=== PATIENT | male | born 1955 | race Caucasian/White ===

== ENCOUNTER 2016-10-07 18:44 | Emergency (ER) | payer MEDICARE ==
[~2016-10-07 18:44] MED LIST: ACETAMINOPHEN-H1 TA2 PO; ANAPROX DS550 MG PO; BACTRIM DS 8001 TA1 PO; BACTROBAN CREAM15 GM T; CEPHALEXIN500 M1 PO; CLEOCIN HCL300 MG PO; CLEOCIN150 MG PO; CYCLOBENZAPRINE10 MG PO; EPIPEN 2-PAK1 MG/ML IJ; FLEXERIL10 MG PO; FLEXERIL5 MG PO; HYDROCODONE BIT1 T11 PO; KEFLEX500 M1 PO; LIDEX 0.05% CRE15 GM T; MEDROL DOSEPAK4 MG PO; MINOCYCLINE100 MG PO; MOTRIN800 MG PO; NAPROSYN500 MG PO; NO DAILY MEDS; NORCO 5-325 TA1 EACH PO; ULTRAM50 MG PO; VICODIN 5/500 505 MG PO; VICODIN 500 MG-1 TAB PO; VICODIN1 TAB PO; ZOFRAN ODT4 MG SL; ZOFRAN4 MG PO
[2016-10-07 18:49] VITALS: BP 150/86
[2016-10-07] MEDS ORDERED: CEPHALEXIN500 M1 PO (20:09)
== END 2016-10-07 20:16 | disposition home or self-care (01) ==
LOC: ED 18:44
DX: S80.12XA Contusion of left lower leg, initial encounter (principal); S80.812A Abrasion, left lower leg, initial encounter; F17.200 Nicotine dependence, unspecified, uncomplicated; Z98.890 Other specified postprocedural states; Z91.030 Bee allergy status; Z88.5 Allergy status to narcotic agent; W22.8XXA Striking against or struck by other objects, initial encounter; Y93.89 Activity, other specified; Y92.89 Other specified places as the place of occurrence of the external cause; Y99.9 Unspecified external cause status

== ENCOUNTER 2016-12-19 18:53 | Emergency (ER) | payer MEDICARE ==
[~2016-12-19] VITALS: Ht 175.2 cm; Wt 77.1 kg
[2016-12-19 19:02] VITALS: BP 139/75
[2016-12-19] MEDS ORDERED: PERCOCET 325 MG1 TA2 PO (21:11)
== END 2016-12-19 21:35 | disposition home or self-care (01) ==
LOC: ED 18:53
DX: M54.2 Cervicalgia (principal); R20.0 Anesthesia of skin; R53.1 Weakness; F17.200 Nicotine dependence, unspecified, uncomplicated; Z88.6 Allergy status to analgesic agent; Z91.030 Bee allergy status

== ENCOUNTER → 2016-12-26 | Outpatient (CLI) | payer MEDICARE ==
[~2016-12-26] MED LIST changes: +PERCOCET 325 MG1 TA2 PO
== END | disposition home or self-care (01) ==
LOC: ORTHO 03:05
DX: L72.9 Follicular cyst of the skin and subcutaneous tissue, unspecified (principal); M25.862 Other specified joint disorders, left knee

== ENCOUNTER → 2017-01-20 | Outpatient (CLI) | payer MEDICARE | LOC: RAD 12:29 | DX: M79.9 Soft tissue disorder, unspecified (principal) ==

== ENCOUNTER 2017-03-09 16:11 | Emergency (ER) | payer MEDICARE ==
[~2017-03-09] VITALS: Ht 177.8 cm; Wt 78.5 kg
[2017-03-09 16:46] VITALS: BP 127/78
[2017-03-09] MEDS ORDERED: CYCLOBENZAPRINE10 MG PO (18:19)
[2017-03-09] MEDS ORDERED: MEDROL DOSEPAK4 MG PO (18:19)
== END 2017-03-09 18:35 | disposition home or self-care (01) ==
LOC: ED 16:11
DX: M54.5 Low back pain (principal); M79.605 Pain in left leg; F17.200 Nicotine dependence, unspecified, uncomplicated; K21.9 Gastro-esophageal reflux disease without esophagitis; Z98.890 Other specified postprocedural states; Z91.030 Bee allergy status; Z88.5 Allergy status to narcotic agent

== ENCOUNTER 2017-11-18 15:03 | Inpatient (IN) | payer MEDICARE ==
[~2017-11-18] VITALS: Ht 175.3 cm; Wt 73.6 kg
[2017-11-18 15:06] VITALS: BP 132/82
[2017-11-18 15:55] LABS: BASO % 0.5 % (0.0-1.0); EOS # 0.2 10*3/uL (0.0-0.4); EOS % 2.3 % (1.0-4.0); HEMATOCRIT 44.1 % (42.0-52.0); HEMOGLOBIN 14.5 g/dl (14.0-18.0); LYMPH # 1.5 10*3/uL (1.3-4.4); LYMPH % 23.9 % (27.0-41.0); MEAN CELL VOLUME 90.2 fl (80.0-94.0); MEAN CORPUSCULAR HGB 29.7 pg (27.0-31.0); MEAN CORPUSCULAR HGB CONC 32.9 g/dl (33.0-37.0); MEAN PLATELET VOLUME 10.3 fl (9.6-12.3); MONO # 0.6 10*3/uL (0.1-1.0); MONO % 9.8 % (3.0-9.0); NEUT # 4.1 10*3/uL (2.3-7.9); NEUT % 63.2 % (47.0-73.0); PLATELET COUNT AUTOMATED 269 10*3/uL (130-400); RED BLOOD COUNT 4.89 10*6/uL (4.50-5.90); RED CELL DISTRI WIDTH 14.4 % (0-14.5); WHITE BLOOD COUNT 6.5 10*3/uL (4.8-10.8)
[2017-11-18 16:07] LABS: ACT PARTIAL THROMBO TIME 22.7 SECONDS (20.8-31.5); INTERNATIONAL NORM RATIO 0.9 (2.0-3.5)
[2017-11-18 16:11] LABS: ALBUMIN 3.9 gm/dl (3.1-4.5); ALKALINE PHOSPHATASE 115 U/L (45-117); BUN 12 mg/dl (7-24); CHLORIDE 105 mmol/L (98-107); CREATININE 0.84 mg/dL (0.70-1.30); POTASSIUM 4.2 mmol/L (3.5-5.1); SGOT/AST 21 IU/L (3-35); SGPT/ALT 28 U/L (12-78); SODIUM 140 mmol/L (136-145); TROPONIN I 0.041 ng/ml (<0.045)
[2017-11-18 16:59] VITALS: BP 138/88
[2017-11-18 17:08] LABS: BILIRUBIN NEGATIVE (NEGATIVE); BLOOD NEGATIVE (NEGATIVE); CLARITY SL CLOUDY (CLEAR); COLOR YELLOW (YELLOW); GLUCOSE NEGATIVE (NEGATIVE); KETONE NEGATIVE (NEGATIVE); LEUKO ESTERASE NEGATIVE (NEGATIVE); NITRITE NEGATIVE (NEGATIVE)
[2017-11-18 17:30] LABS: WBC 0-2 wbc/hpf (0-5)
[2017-11-18 17:39] VITALS: BP 146/79
[2017-11-18 18:00] VITALS: BP 146/91
[2017-11-18 20:00] VITALS: BP 122/77
[2017-11-19] VITALS: BP 122/52
[2017-11-19 06:32] LABS: BASO % 0.6 % (0.0-1.0); EOS # 0.2 10*3/uL (0.0-0.4); EOS % 4.5 % (1.0-4.0); HEMATOCRIT 42.1 % (42.0-52.0); HEMOGLOBIN 13.6 g/dl (14.0-18.0); LYMPH # 1.7 10*3/uL (1.3-4.4); LYMPH % 34.2 % (27.0-41.0); MEAN CELL VOLUME 90.3 fl (80.0-94.0); MEAN CORPUSCULAR HGB 29.2 pg (27.0-31.0); MEAN CORPUSCULAR HGB CONC 32.3 g/dl (33.0-37.0); MEAN PLATELET VOLUME 10.4 fl (9.6-12.3); MONO # 0.5 10*3/uL (0.1-1.0); MONO % 11.1 % (3.0-9.0); NEUT # 2.4 10*3/uL (2.3-7.9); NEUT % 49.2 % (47.0-73.0); PLATELET COUNT AUTOMATED 251 10*3/uL (130-400); RED BLOOD COUNT 4.66 10*6/uL (4.50-5.90); RED CELL DISTRI WIDTH 14.5 % (0-14.5); WHITE BLOOD COUNT 4.9 10*3/uL (4.8-10.8)
[2017-11-19 06:49] LABS: ALBUMIN 3.4 gm/dl (3.1-4.5); BUN 12 mg/dl (7-24); CHLORIDE 109 mmol/L (98-107); CREATININE 0.77 mg/dL (0.70-1.30); PHOSPHOROUS 3.1 mg/dL (2.5-4.9); SGOT/AST 17 IU/L (3-35); SGPT/ALT 26 U/L (12-78); SODIUM 142 mmol/L (136-145); TOTAL PROTEIN 6.1 gm/dL (6.4-8.2); TRIGLYCERIDES 39 mg/dl (<150); VLDL CHOLESTEROL 8 mg/dL (6-40)
[2017-11-19 06:55] LABS: ALKALINE PHOSPHATASE 100 U/L (45-117); CHOLESTEROL 164 mg/dL (<200); HDL CHOLESTEROL 102 mg/dl (40-60); LDL CHOLESTEROL 54 mg/dL (9-159); THYROID STIM HORMONE (HS) 0.974 uIU/ml (0.358-4.75)
[2017-11-19 07:48] LABS: VITAMIN D, 25-HYDROXY 61.1 ng/mL (30-100)
[2017-11-19 08:00] VITALS: BP 150/78
== END 2017-11-19 11:15 | disposition home or self-care (01) | DRG 311 ==
LOC: ED 15:03 → 4E 17:07 → EDHOLD 17:07 → 4E 17:47
PROVIDERS: Internal Medicine Hospice and Palliative Medicine; Physician Assistant
DX: I20.8 Other forms of angina pectoris (principal); K50.90 Crohn's disease, unspecified, without complications; F17.200 Nicotine dependence, unspecified, uncomplicated; I10 Essential (primary) hypertension; E78.5 Hyperlipidemia, unspecified; K21.9 Gastro-esophageal reflux disease without esophagitis; E66.3 Overweight; F10.10 Alcohol abuse, uncomplicated; Z96.652 Presence of left artificial knee joint; D72.810 Lymphocytopenia; Z71.6 Tobacco abuse counseling; Z68.26 Body mass index [BMI] 26.0-26.9, adult; Z98.890 Other specified postprocedural states; Z88.5 Allergy status to narcotic agent; Z91.030 Bee allergy status; Z90.49 Acquired absence of other specified parts of digestive tract; Z82.49 Family history of ischemic heart disease and other diseases of the circulatory system

== ENCOUNTER 2018-01-03 12:31 | Emergency (ER) | payer MEDICARE ==
[~2018-01-03] VITALS: Wt 79.4 kg
[2018-01-03 13:33] VITALS: BP 164/78
[2018-02-04] MEDS ORDERED: MEDROL DOSEPAK4 MG PO (12:12)
[2018-02-04] MEDS ORDERED: WAL-SOM50 MG PO (12:12)
== END 2018-01-03 14:34 | disposition home or self-care (01) ==
LOC: ED 12:31
DX: S01.311A Laceration without foreign body of right ear, initial encounter (principal); S50.01XA Contusion of right elbow, initial encounter; F17.200 Nicotine dependence, unspecified, uncomplicated; E66.3 Overweight; K21.9 Gastro-esophageal reflux disease without esophagitis; Z91.030 Bee allergy status; Z98.890 Other specified postprocedural states; Z68.29 Body mass index [BMI] 29.0-29.9, adult; Z88.5 Allergy status to narcotic agent; W01.198A Fall on same level from slipping, tripping and stumbling with subsequent striking against other object, initial encounter; Y93.89 Activity, other specified; Y92.098 Other place in other non-institutional residence as the place of occurrence of the external cause; Y99.9 Unspecified external cause status

== ENCOUNTER 2018-04-10 11:34 | Inpatient (IN) | payer MEDICARE ==
[~2018-04-10] VITALS: Ht 172.7 cm; Wt 77.1 kg
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
--- NOTE | ~2018-04-10 | EKG ---
[place], [place] ELECTROCARDIOGRAM REPORT NAME: ZULEIMA CRESPO UNIT #: [id number] ROOM: 402 DOCTOR: ECTOR DRAFT REPORT BIRTHDATE: [birth year] [facility] Test Date: 2018-04-10 Test Time: 18:14:46 Pat Name: ZULEIMA CRESPO Department: Room: 402 Gender: M Clerical Secretary: EKG.MN : 1955 Requested By: JANAE TOLBERT Order Number: [id number] Reading MD: Santino Ashraf MD Measurements Intervals [place] Rate: 71 P: 65 MD: 162 QRS: 54 QRSD: 103 T: 48 QT: 403 QTc: 438 Interpretive Statements Sinus rhythm Left atrial enlargement Compared to ECG 04/10/2018 15:26:38 No significant changes Electronically Signed On 04-10-2018 18:35:39 PDT by Santino Ashraf MD CM:EKGRPT:ELECTROCARDIOGRAM REPORT 1835 JANAE FARIA DRAFT REPORT JANAE TOLBERT DO
--- NOTE | ~2018-04-10 | EKG ---
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
--- NOTE | ~2018-04-10 | EKG ---
[place], [place] ELECTROCARDIOGRAM REPORT NAME: ZULEIMA CRESPO UNIT #: [id number] ROOM: 402 DOCTOR: ECTOR DRAFT REPORT BIRTHDATE: [birth year] [facility] Test Date: 2018-04-10 Test Time: 11:34:45 Pat Name: ZULEIMA CRESPO Department: Room: 402 Gender: M Call Center Coordinator: 15 : 1955 Requested By: JANAE TOLBERT Order Number: [id number] Reading MD: Santino Ashraf MD Measurements Intervals [place] Rate: 70 P: -2 NM: 151 QRS: 63 QRSD: 103 T: 60 QT: 417 QTc: 450 Interpretive Statements Sinus rhythm Minimal ST elevation, inferior leads Electronically Signed On 04-10-2018 13:59:14 PDT by Santino Ashraf MD CM:EKGRPT:ELECTROCARDIOGRAM REPORT 1134 1359 JANAE FARIA DRAFT REPORT JANAE TOLBERT DO
[~2018-04-10 11:34] MED LIST changes: +WAL-SOM50 MG PO
[2018-04-10 11:35] VITALS: BP 134/71
[2018-04-10 11:47] LABS: BASO # 0.1 10*3/uL (0.0-0.1); BASO % 0.5 % (0.0-1.0); EOS # 0.1 10*3/uL (0.0-0.4); EOS % 1.2 % (1.0-4.0); HEMATOCRIT 45.2 % (42.0-52.0); HEMOGLOBIN 15.5 g/dl (14.0-18.0); LYMPH % 21.6 % (27.0-41.0); MEAN CELL VOLUME 87.1 fl (80.0-94.0); MEAN CORPUSCULAR HGB 29.9 pg (27.0-31.0); MEAN CORPUSCULAR HGB CONC 34.3 g/dl (33.0-37.0); MEAN PLATELET VOLUME 10.1 fl (9.6-12.3); MONO # 0.5 10*3/uL (0.1-1.0); MONO % 5.5 % (3.0-9.0); NEUT # 6.5 10*3/uL (2.3-7.9); NEUT % 70.8 % (47.0-73.0); PLATELET COUNT AUTOMATED 295 10*3/uL (130-400); RED BLOOD COUNT 5.19 10*6/uL (4.50-5.90); RED CELL DISTRI WIDTH 13.8 % (0-14.5); WHITE BLOOD COUNT 9.2 10*3/uL (4.8-10.8)
[2018-04-10 11:56] LABS: ACT PARTIAL THROMBO TIME 19.5 SECONDS (20.8-31.5); INTERNATIONAL NORM RATIO 0.9 (2.0-3.5)
[2018-04-10 12:04] LABS: ALBUMIN 4.2 gm/dl (3.1-4.5); ALKALINE PHOSPHATASE 127 U/L (45-117); BUN 10 mg/dl (7-24); CHLORIDE 107 mmol/L (98-107); CREATININE 0.86 mg/dL (0.70-1.30); POTASSIUM 3.6 mmol/L (3.5-5.1); SGOT/AST 16 IU/L (3-35); SGPT/ALT 28 U/L (12-78); SODIUM 141 mmol/L (136-145); TOTAL PROTEIN 7.7 gm/dL (6.4-8.2); TROPONIN I 0.041 ng/ml (<0.045)
[2018-04-10 13:35] VITALS: BP 127/75
[2018-04-10 14:12] VITALS: BP 139/84
[2018-04-10 14:27] VITALS: BP 138/84
[2018-04-10 16:00] VITALS: BP 139/77
[2018-04-10 20:00] VITALS: BP 123/60
[2018-04-11] VITALS: BP 126/58
[2018-04-11 06:45] LABS: BASO % 0.1 % (0.0-1.0); EOS % 0.1 % (1.0-4.0); HEMATOCRIT 42.7 % (42.0-52.0); HEMOGLOBIN 14.1 g/dl (14.0-18.0); LYMPH # 1.7 10*3/uL (1.3-4.4); LYMPH % 12.2 % (27.0-41.0); MEAN CELL VOLUME 89.3 fl (80.0-94.0); MEAN CORPUSCULAR HGB 29.5 pg (27.0-31.0); MEAN PLATELET VOLUME 10.3 fl (9.6-12.3); MONO # 1.2 10*3/uL (0.1-1.0); MONO % 8.2 % (3.0-9.0); NEUT # 11.1 10*3/uL (2.3-7.9); NEUT % 78.8 % (47.0-73.0); PLATELET COUNT AUTOMATED 242 10*3/uL (130-400); RED BLOOD COUNT 4.78 10*6/uL (4.50-5.90); RED CELL DISTRI WIDTH 13.8 % (0-14.5)
[2018-04-11 07:16] LABS: ALBUMIN 3.6 gm/dl (3.1-4.5); ALKALINE PHOSPHATASE 121 U/L (45-117); BUN 15 mg/dl (7-24); CHLORIDE 105 mmol/L (98-107); CHOLESTEROL 172 mg/dL (<200); FREE T4 0.89 ng/dl (0.76-1.46); HDL CHOLESTEROL 93 mg/dl (40-60); PHOSPHOROUS 3.4 mg/dL (2.5-4.9); POTASSIUM 3.9 mmol/L (3.5-5.1); SGOT/AST 18 IU/L (3-35); SGPT/ALT 24 U/L (12-78); SODIUM 138 mmol/L (136-145)
[2018-04-11 07:22] LABS: CREATININE 0.75 mg/dL (0.70-1.30); LDL CHOLESTEROL 69 mg/dL (9-159); THYROID STIM HORMONE (HS) 0.284 uIU/ml (0.358-4.75); TOTAL PROTEIN 6.8 gm/dL (6.4-8.2); TRIGLYCERIDES 50 mg/dl (<150); VLDL CHOLESTEROL 10 mg/dL (6-40)
[2018-04-11 07:54] LABS: VITAMIN D, 25-HYDROXY 64.2 ng/mL (30-100)
[2018-04-11 08:08] VITALS: BP 142/56
[2018-04-11 12:00] VITALS: BP 129/77
== END 2018-04-11 13:29 | disposition home or self-care (01) | DRG 206 ==
LOC: ED 11:34 → EDHOLD 13:31 → 4E 14:19
PROVIDERS: Emergency Medicine; Registered Nurse
DX: M94.0 Chondrocostal junction syndrome [Tietze] (principal); K50.90 Crohn's disease, unspecified, without complications; K21.9 Gastro-esophageal reflux disease without esophagitis; R07.89 Other chest pain; R74.8 Abnormal levels of other serum enzymes; F17.210 Nicotine dependence, cigarettes, uncomplicated; F10.10 Alcohol abuse, uncomplicated; F12.90 Cannabis use, unspecified, uncomplicated; M25.511 Pain in right shoulder; Z71.6 Tobacco abuse counseling; Z82.49 Family history of ischemic heart disease and other diseases of the circulatory system; Z88.5 Allergy status to narcotic agent; Z91.030 Bee allergy status; Z91.81 History of falling; I25.2 Old myocardial infarction

== ENCOUNTER → 2018-04-23 | Outpatient (CLI) | payer MEDICARE | END | disposition home or self-care (01) | LOC: US 13:51 | DX: I70.213 Atherosclerosis of native arteries of extremities with intermittent claudication, bilateral legs (principal); I70.298 Other atherosclerosis of native arteries of extremities, other extremity; R09.89 Other specified symptoms and signs involving the circulatory and respiratory systems; I25.2 Old myocardial infarction; Z87.891 Personal history of nicotine dependence ==

== ENCOUNTER 2019-02-22 17:34 | Emergency (ER) | payer MEDICARE, MEDICAID ==
[~2019-02-22] VITALS: Ht 177.8 cm; Wt 72.6 kg
[2019-02-22 17:37] VITALS: BP 122/68
[2019-02-22] MEDS ORDERED: LIDODERM1 EACH T (19:31)
[2019-02-22] MEDS ORDERED: CYCLOBENZAPRINE10 MG PO (19:31)
== END 2019-02-22 19:32 | disposition home or self-care (01) ==
LOC: ED 17:34
DX: M54.2 Cervicalgia (principal); M79.601 Pain in right arm; F17.200 Nicotine dependence, unspecified, uncomplicated; Z88.6 Allergy status to analgesic agent; Z91.030 Bee allergy status; W01.0XXA Fall on same level from slipping, tripping and stumbling without subsequent striking against object, initial encounter; Y93.89 Activity, other specified; Y92.89 Other specified places as the place of occurrence of the external cause; Y99.8 Other external cause status

== ENCOUNTER 2019-03-06 19:45 | Inpatient (IN) | payer MEDICARE, MEDICAID ==
[~2019-03-06] VITALS: Ht 177.8 cm; Wt 73.7 kg
--- NOTE | ~2019-03-06 | EKG ---
[place], [place] ELECTROCARDIOGRAM REPORT NAME: ZULEIMA CRESPO UNIT #: [id number] ROOM: 415 DOCTOR: ECTOR DRAFT REPORT BIRTHDATE: [birth year] [facility] Test Date: 2019-03-06 Test Time: 19:51:03 Pat Name: ZULEIMA CRESPO Department: Room: 415 Gender: M Assorter: : 1955 Requested By: ALEJANDRO SMITH Order Number: [id number] Reading MD: Amarjit Kirby MD Measurements Intervals [place] Rate: 61 P: 69 FL: 155 QRS: 68 QRSD: 101 T: 62 QT: 455 QTc: 459 Interpretive Statements Sinus rhythm Probable left atrial enlargement Compared to ECG 10/31/2018 19:19:46 Atrial premature complex(es) no longer present Electronically Signed On 03-07-2019 14:37:21 PDT by Amarjit Kirby MD CM:EKGRPT:ELECTROCARDIOGRAM REPORT 50 1437 ALEJANDRO FARIA DRAFT REPORT ALEJANDRO SMITH DO
--- NOTE | ~2019-03-06 | EKG ---
[place], [place] ELECTROCARDIOGRAM REPORT NAME: ZULEIMA CRESPO UNIT #: [id number] ROOM: 415 DOCTOR: ECTOR DRAFT REPORT BIRTHDATE: [birth year] [facility] Test Date: 2019-03-06 Test Time: 22:10:50 Pat Name: ZULEIMA CRESPO Department: Room: 415 Gender: M Leather Whitener: : 1955 Requested By: ALEJANDRO SMITH Order Number: [id number] Reading MD: Amarjit Kirby MD Measurements Intervals [place] Rate: 67 P: 62 SD: 161 QRS: 46 QRSD: 98 T: 50 QT: 427 QTc: 451 Interpretive Statements Sinus rhythm Minimal ST elevation, anterior leads Compared to ECG 10/31/2018 19:19:46 ST (T wave) deviation now present Atrial premature complex(es) no longer present Electronically Signed On 03-07-2019 14:37:36 PDT by Amarjit Kirby MD CM:EKGRPT:ELECTROCARDIOGRAM REPORT 1437 ALEJANDRO FARIA DRAFT REPORT ALEJANDRO SMITH DO
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
[~2019-03-06 19:45] MED LIST changes: +LIDODERM1 EACH T
[2019-03-06 19:53] VITALS: BP 134/80
[2019-03-06 20:10] VITALS: BP 138/81
[2019-03-06 20:14] LABS: BASO % 0.3 % (0.0-1.0); EOS % 0.1 % (1.0-4.0); HEMATOCRIT 47.6 % (42.0-52.0); HEMOGLOBIN 15.9 g/dl (14.0-18.0); LYMPH # 1.4 10*3/uL (1.3-4.4); MEAN CELL VOLUME 88.1 fl (80.0-94.0); MEAN CORPUSCULAR HGB 29.4 pg (27.0-31.0); MEAN CORPUSCULAR HGB CONC 33.4 g/dl (33.0-37.0); MONO # 0.6 10*3/uL (0.1-1.0); MONO % 7.1 % (3.0-9.0); NEUT # 5.9 10*3/uL (2.3-7.9); PLATELET COUNT AUTOMATED 265 10*3/uL (130-400); RED CELL DISTRI WIDTH 13.8 % (0-14.5)
[2019-03-06 20:25] LABS: ACT PARTIAL THROMBO TIME 22.4 SECONDS (20.0-32.1); INTERNATIONAL NORM RATIO 0.9 (2.0-3.5)
--- NOTE | 2019-03-06 20:25 | NUR ---
PATIENT STATES HE IS FEELING BETTER AND WANTED TO TAKE OFF 2LITERS NC OXYGEN AT THIS TIME. 97% ON RA. RN WILL CONT TO MONITOR
[2019-03-06 20:26] VITALS: BP 135/73
--- NOTE | 2019-03-06 20:29 | NUR ---
PATIENT OFF THE FLOOR AT CT.
[2019-03-06 20:33] LABS: ALBUMIN 4.2 gm/dl (3.1-4.5); ALKALINE PHOSPHATASE 155 U/L (45-117); BUN 11 mg/dl (7-24); CHLORIDE 102 mmol/L (98-107); CREATININE 0.91 mg/dL (0.70-1.30); POTASSIUM 3.7 mmol/L (3.5-5.1); SGOT/AST 24 IU/L (3-35); SGPT/ALT 36 U/L (12-78); SODIUM 138 mmol/L (136-145); TOTAL PROTEIN 7.6 gm/dL (6.4-8.2)
[2019-03-06 20:37] LABS: TROPONIN I 0.047 ng/ml (<0.045)
--- NOTE | 2019-03-06 20:37 | NUR ---
CRITICAL LAB TROP 0.047. DR SMITH NOTIFIED OF THIS FINDING.
--- NOTE | 2019-03-06 20:58 | NUR ---
CRITICAL LAB LACTIC ACID 2.3. DR SMITH NOTIFIED OF THIS FINDING.
[2019-03-06 21:00] VITALS: BP 135/71
[2019-03-06 21:36] VITALS: BP 132/79
[2019-03-06 21:37] LABS: BILIRUBIN NEGATIVE (NEGATIVE); BLOOD NEGATIVE (NEGATIVE); CLARITY CLEAR (CLEAR); COLOR YELLOW (YELLOW); GLUCOSE NEGATIVE (NEGATIVE); KETONE 2+ (NEGATIVE); LEUKO ESTERASE NEGATIVE (NEGATIVE); NITRITE NEGATIVE (NEGATIVE)
[2019-03-06 21:43] LABS: BACTERIA TRACE; RBC 0-2 rbc/hpf (0-2)
[2019-03-06 21:46] LABS: URINE AMPHETAMINES < 1000 (1000ng/ml); URINE BARBITURATES < 200 (200ng/ml); URINE BENZODIAZEPINES < 200 (200ng/ml); URINE CANNABINOIDS (THC) > 50 (50ng/ml); URINE COCAINE < 300 (300ng/ml); URINE METHADONE < 300 (300ng/ml); URINE OPIATES < 300 (300ng/ml)
[2019-03-06 21:47] LABS: URINE PHENCYCLIDINE < 25 (25ng/ml)
[2019-03-06 22:18] VITALS: BP 121/88
--- NOTE | 2019-03-06 22:55 | NUR ---
CRITICAL RESULT RECEIVED FROM LAB AT THIS TIME. CAMILA VEGA AND DR SMITH NOTIFIED.
[2019-03-07 00:05] VITALS: BP 136/76
--- NOTE | 2019-03-07 00:05 | NUR ---
A 63, admitted to 4E, under the services of DOV Castro DO with a diagnosis of LIGHTHEADEDNESS, DEHYDRATION, COPD. Chief complaint is NAUSEA/VOMITING, LIGHTHEADEDNESS/DIZZINESS. Patient arrived via stretcher from ER. Monitor applied. Initial assessment completed. Vital signs taken and recorded. DOV CASTRO DO notified of admission to the unit. Orders received. See assessment for past medical history, medications and allergies. Patient and/or family oriented to unit. [facility] visitation policy reviewed. Clothing/patient valuable form completed. SAM VALDEZ
[2019-03-07] MEDS ORDERED: OMEPRAZOLE40 MG PO (00:17)
--- NOTE | 2019-03-07 00:18 | NUR ---
HOME MED REC UP TO DATE PER PT RECALL.
--- NOTE | 2019-03-07 02:12 | NUR ---
NOTIFIED OF CRITICAL TROPONIN 0.049, DOWN FROM 0.054. NO NEW ORDERS RECEIVED.
[2019-03-07 06:06] LABS: BASO % 0.2 % (0.0-1.0); HEMATOCRIT 45.6 % (42.0-52.0); HEMOGLOBIN 15.1 g/dl (14.0-18.0); LYMPH # 0.5 10*3/uL (1.3-4.4); LYMPH % 9.3 % (27.0-41.0); MEAN CELL VOLUME 88.5 fl (80.0-94.0); MEAN CORPUSCULAR HGB 29.3 pg (27.0-31.0); MEAN CORPUSCULAR HGB CONC 33.1 g/dl (33.0-37.0); MEAN PLATELET VOLUME 10.7 fl (9.6-12.3); MONO # 0.2 10*3/uL (0.1-1.0); MONO % 2.8 % (3.0-9.0); NEUT % 87.2 % (47.0-73.0); PLATELET COUNT AUTOMATED 274 10*3/uL (130-400); RED BLOOD COUNT 5.15 10*6/uL (4.50-5.90); RED CELL DISTRI WIDTH 13.9 % (0-14.5); WHITE BLOOD COUNT 5.8 10*3/uL (4.8-10.8)
[2019-03-07 06:16] LABS: BUN 16 mg/dl (7-24); CHLORIDE 105 mmol/L (98-107); CREATININE 0.83 mg/dL (0.70-1.30); PHOSPHOROUS 2.2 mg/dL (2.5-4.9); POTASSIUM 4.1 mmol/L (3.5-5.1); SODIUM 141 mmol/L (136-145)
[2019-03-07 08:00] VITALS: BP 133/69
--- NOTE | 2019-03-07 08:20 | NUR ---
Awake and alert. States is hoping to go home today. Garrett Deluna TANKROOM TENDER in to rajesh;cris.
--- NOTE | 2019-03-07 09:00 | NUR ---
Residential Mental Health Worker in to talk to patient. Patient states lives at home with . There are few steps in the home. Physician: tito rothman Pharmacy: [facility] Home health services: none Patient's level of ADLs: INDEPENDENT Patient has working utilities: [employer]working DME: none Follow-up physician's appointment after d/c: will be made by hospitalist nurse director upon discharge Does patient want to access PORTAL?: no Discharge plan discussed with patient, he states he lives at home with , he is independent in adls and ambulation, he states he will be returning home when medically stable and denies any home needs. KENDRICK VALENCIA
--- NOTE | 2019-03-07 09:44 | NUR ---
Dr. Mcneill was notified of consult.
--- NOTE | 2019-03-07 12:22 | NUR ---
dR. Mcneill in [place] for discharge. Terra WHEEL GRINDER notified . Order for discharge recieved. Instruction given , Voiced understanding. IV dc'd and pt. discharged to home.
== END 2019-03-07 12:22 | disposition home or self-care (01) | DRG 392 ==
LOC: ED 19:45 → EDHOLD 22:12 → 4E 22:39
PROVIDERS: Emergency Medicine; Internal Medicine; ADMIT Internal Medicine
DX: K21.9 Gastro-esophageal reflux disease without esophagitis (principal); I24.8 Other forms of acute ischemic heart disease; K50.90 Crohn's disease, unspecified, without complications; J44.9 Chronic obstructive pulmonary disease, unspecified; E86.0 Dehydration; F12.90 Cannabis use, unspecified, uncomplicated; I25.10 Atherosclerotic heart disease of native coronary artery without angina pectoris; F17.210 Nicotine dependence, cigarettes, uncomplicated; E83.41 Hypermagnesemia; I25.2 Old myocardial infarction; Z91.81 History of falling; Z82.49 Family history of ischemic heart disease and other diseases of the circulatory system; Z88.5 Allergy status to narcotic agent; Z91.030 Bee allergy status; Z79.899 Other long term (current) drug therapy; Z71.6 Tobacco abuse counseling

== ENCOUNTER → 2019-05-09 | Outpatient (CLI) | payer MEDICARE, MEDICAID ==
[~2019-05-09] MED LIST changes: +OMEPRAZOLE40 MG PO
[2019-05-09 12:59] LABS: BASO % 0.3 % (0.0-1.0); EOS # 0.2 10*3/uL (0.0-0.4); EOS % 3.7 % (1.0-4.0); HEMATOCRIT 43.7 % (42.0-52.0); HEMOGLOBIN 14.4 g/dl (14.0-18.0); LYMPH % 33.4 % (27.0-41.0); MEAN CELL VOLUME 89.9 fl (80.0-94.0); MEAN CORPUSCULAR HGB 29.6 pg (27.0-31.0); MEAN PLATELET VOLUME 10.7 fl (9.6-12.3); MONO # 0.4 10*3/uL (0.1-1.0); MONO % 7.1 % (3.0-9.0); NEUT # 3.3 10*3/uL (2.3-7.9); NEUT % 55.3 % (47.0-73.0); PLATELET COUNT AUTOMATED 242 10*3/uL (130-400); RED BLOOD COUNT 4.86 10*6/uL (4.50-5.90); RED CELL DISTRI WIDTH 13.8 % (0-14.5); WHITE BLOOD COUNT 5.9 10*3/uL (4.8-10.8)
[2019-05-09 13:04] LABS: BILIRUBIN NEGATIVE (NEGATIVE); BLOOD NEGATIVE (NEGATIVE); CLARITY CLEAR (CLEAR); COLOR YELLOW (YELLOW); GLUCOSE NEGATIVE (NEGATIVE); KETONE NEGATIVE (NEGATIVE); LEUKO ESTERASE NEGATIVE (NEGATIVE); NITRITE NEGATIVE (NEGATIVE); UROBILINOGEN 0.2 E.U./dl (0.2-1.0)
[2019-05-09 13:20] LABS: BACTERIA TRACE; MUCOUS TRACE
[2019-05-09 13:34] LABS: ALBUMIN 3.8 gm/dl (3.1-4.5); BUN 14 mg/dl (7-24); CHLORIDE 109 mmol/L (98-107); CREATININE 0.78 mg/dL (0.70-1.30); POTASSIUM 3.8 mmol/L (3.5-5.1); SGOT/AST 24 IU/L (3-35); SGPT/ALT 33 U/L (12-78); SODIUM 140 mmol/L (136-145)
[2019-05-09 13:36] LABS: ALKALINE PHOSPHATASE 135 U/L (45-117); TOTAL PROTEIN 7.2 gm/dL (6.4-8.2)
[2019-05-10 09:11] LABS: PROSTATE SPECIFIC AG FREE 0.53 ng/mL; PROSTATE SPECIFIC AG, SERUM 2.7 ng/mL (0.0-4.0)
== END | disposition home or self-care (01) ==
LOC: LAB 12:31 → CT 14:00
PROVIDERS: Nurse Practitioner Family
DX: Z12.5 Encounter for screening for malignant neoplasm of prostate (principal); N39.0 Urinary tract infection, site not specified; R53.83 Other fatigue; R33.9 Retention of urine, unspecified; R30.0 Dysuria; I70.0 Atherosclerosis of aorta

== ENCOUNTER 2019-06-09 20:37 | Emergency (ER) | payer MEDICARE, MEDICAID ==
[~2019-06-09] VITALS: Ht 175.2 cm; Wt 81.2 kg
[~2019-06-09 20:37] MED LIST changes: +DOXYCYCLINE100 M3 PO; +PREDNISONE50 MG PO; +ZITHROMAX250 MG PO
[2019-06-09] MEDS ORDERED: TAMSULOSIN HCL0.4 MG PO (20:39)
[2019-06-09] MEDS ORDERED: ASPIRIN ADULT L81 M2 PO (20:39)
[2019-06-09] MEDS ORDERED: FINASTERIDE5 M1 PO (20:39)
[2019-06-09 20:42] VITALS: BP 140/83
[2019-06-09 22:18] LABS: BASO % 0.5 % (0.0-1.0); EOS # 0.3 10*3/uL (0.0-0.4); EOS % 4.1 % (1.0-4.0); HEMATOCRIT 41.7 % (42.0-52.0); HEMOGLOBIN 13.8 g/dl (14.0-18.0); LYMPH % 25.5 % (27.0-41.0); MEAN CELL VOLUME 88.7 fl (80.0-94.0); MEAN CORPUSCULAR HGB 29.4 pg (27.0-31.0); MEAN CORPUSCULAR HGB CONC 33.1 g/dl (33.0-37.0); MEAN PLATELET VOLUME 10.1 fl (9.6-12.3); MONO # 0.8 10*3/uL (0.1-1.0); MONO % 10.1 % (3.0-9.0); NEUT # 4.7 10*3/uL (2.3-7.9); NEUT % 59.3 % (47.0-73.0); PLATELET COUNT AUTOMATED 272 10*3/uL (130-400); RED CELL DISTRI WIDTH 13.5 % (0-14.5)
[2019-06-09 22:38] LABS: ALBUMIN 3.5 gm/dl (3.1-4.5); ALKALINE PHOSPHATASE 178 U/L (45-117); BUN 15 mg/dl (7-24); CHLORIDE 108 mmol/L (98-107); CREATININE 0.79 mg/dL (0.70-1.30); POTASSIUM 3.4 mmol/L (3.5-5.1); SGOT/AST 11 IU/L (3-35); SGPT/ALT 28 U/L (12-78); SODIUM 139 mmol/L (136-145)
[2019-06-09 22:40] LABS: TROPONIN I < 0.015 ng/ml (<0.045)
[2019-06-10] MEDS ORDERED: AVPAK AZITHROM250 MG PO (03:24)
== END 2019-06-10 00:10 | disposition home or self-care (01) ==
LOC: ED 20:37
PROVIDERS: Nurse Practitioner
DX: J44.9 Chronic obstructive pulmonary disease, unspecified (principal); F17.210 Nicotine dependence, cigarettes, uncomplicated; Z91.030 Bee allergy status; Z88.5 Allergy status to narcotic agent; Z79.82 Long term (current) use of aspirin; Z79.899 Other long term (current) drug therapy

== ENCOUNTER 2019-08-31 10:40 | Emergency (ER) | payer OTHER, MEDICAID ==
[~2019-08-31] VITALS: Ht 177.8 cm; Wt 81.2 kg
[~2019-08-31 10:40] MED LIST changes: +ASPIRIN ADULT L81 M2 PO; +AVPAK AZITHROM250 MG PO; +FINASTERIDE5 M1 PO; +TAMSULOSIN HCL0.4 MG PO
[2019-08-31 10:53] VITALS: BP 153/88
== END 2019-08-31 13:14 | disposition home or self-care (01) ==
LOC: ED 10:40
DX: S60.222A Contusion of left hand, initial encounter (principal); Z88.5 Allergy status to narcotic agent; Z91.030 Bee allergy status; Z79.82 Long term (current) use of aspirin; Z79.899 Other long term (current) drug therapy; J44.9 Chronic obstructive pulmonary disease, unspecified; K21.9 Gastro-esophageal reflux disease without esophagitis; I25.2 Old myocardial infarction; F41.9 Anxiety disorder, unspecified; F17.200 Nicotine dependence, unspecified, uncomplicated; W23.0XXA Caught, crushed, jammed, or pinched between moving objects, initial encounter; Y93.89 Activity, other specified; Y92.89 Other specified places as the place of occurrence of the external cause; Y99.8 Other external cause status

== ENCOUNTER 2019-10-08 10:37 | Emergency (ER) | payer OTHER, MEDICAID ==
[~2019-10-08] VITALS: Ht 177.8 cm; Wt 78.0 kg
[2019-10-08 10:53] VITALS: BP 131/59
[2019-10-08 11:48] LABS: ACT PARTIAL THROMBO TIME 21.7 SECONDS (20.0-32.1); INTERNATIONAL NORM RATIO 0.9 (2.0-3.5)
[2019-10-08 11:54] LABS: ALBUMIN 4.1 gm/dl (3.1-4.5); ALKALINE PHOSPHATASE 163 U/L (45-117); BUN 14 mg/dl (7-24); CHLORIDE 111 mmol/L (98-107); CREATININE 0.96 mg/dL (0.70-1.30); LIPASE 93 U/L (73-393); POTASSIUM 3.7 mmol/L (3.5-5.1); SGOT/AST 26 IU/L (3-35); SGPT/ALT 41 U/L (12-78); SODIUM 141 mmol/L (136-145); TOTAL PROTEIN 7.7 gm/dL (6.4-8.2)
[2019-10-08 12:09] LABS: BASO % 0.3 % (0.0-1.0); EOS % 0.4 % (1.0-4.0); HEMATOCRIT 46.2 % (42.0-52.0); LYMPH # 0.8 10*3/uL (1.3-4.4); LYMPH % 10.2 % (27.0-41.0); MEAN CELL VOLUME 87.8 fl (80.0-94.0); MEAN CORPUSCULAR HGB 28.5 pg (27.0-31.0); MEAN CORPUSCULAR HGB CONC 32.5 g/dl (33.0-37.0); MEAN PLATELET VOLUME 9.8 fl (9.6-12.3); MONO # 0.4 10*3/uL (0.1-1.0); MONO % 5.1 % (3.0-9.0); NEUT # 6.6 10*3/uL (2.3-7.9); NEUT % 83.7 % (47.0-73.0); PLATELET COUNT AUTOMATED 240 10*3/uL (130-400); RED BLOOD COUNT 5.26 10*6/uL (4.50-5.90); RED CELL DISTRI WIDTH 14.4 % (0-14.5); WHITE BLOOD COUNT 7.9 10*3/uL (4.8-10.8)
[2019-10-08] MEDS ORDERED: ZOFRAN4 MG PO (12:35)
[2019-10-08] MEDS ORDERED: MECLIZINE HCL25 M2 PO (12:35)
== END 2019-10-08 12:43 | disposition home or self-care (01) ==
LOC: ED 10:37
PROVIDERS: Physician Assistant
DX: H81.10 Benign paroxysmal vertigo, unspecified ear (principal); J44.9 Chronic obstructive pulmonary disease, unspecified; K21.9 Gastro-esophageal reflux disease without esophagitis; Z88.5 Allergy status to narcotic agent; Z79.82 Long term (current) use of aspirin; Z79.899 Other long term (current) drug therapy

== ENCOUNTER 2019-10-30 19:07 | Inpatient (IN) | payer MEDICARE ==
[~2019-10-30] VITALS: Ht 177.8 cm; Wt 77.1 kg
[~2019-10-30 19:07] MED LIST changes: +MECLIZINE HCL25 M2 PO
[2019-10-30 19:15] VITALS: BP 142/80
[2019-10-30 19:53] VITALS: BP 128/78
[2019-10-30 20:15] LABS: BASO % 0.3 % (0.0-1.0); EOS % 0.1 % (1.0-4.0); HEMATOCRIT 43.4 % (42.0-52.0); LYMPH # 0.8 10*3/uL (1.3-4.4); LYMPH % 7.4 % (27.0-41.0); MEAN CELL VOLUME 86.6 fl (80.0-94.0); MEAN CORPUSCULAR HGB 29.1 pg (27.0-31.0); MEAN CORPUSCULAR HGB CONC 33.6 g/dl (33.0-37.0); MEAN PLATELET VOLUME 10.1 fl (9.6-12.3); MONO # 0.7 10*3/uL (0.1-1.0); NEUT # 8.9 10*3/uL (2.3-7.9); NEUT % 84.9 % (47.0-73.0); PLATELET COUNT AUTOMATED 231 10*3/uL (130-400); RED BLOOD COUNT 5.01 10*6/uL (4.50-5.90); RED CELL DISTRI WIDTH 14.5 % (0-14.5); WHITE BLOOD COUNT 10.5 10*3/uL (4.8-10.8)
[2019-10-30 20:25] LABS: INTERNATIONAL NORM RATIO 0.9 (2.0-3.5)
[2019-10-30 20:33] LABS: ALKALINE PHOSPHATASE 144 U/L (45-117); BUN 21 mg/dl (7-24); CHLORIDE 111 mmol/L (98-107); POTASSIUM 3.8 mmol/L (3.5-5.1); SGOT/AST 21 IU/L (3-35); SGPT/ALT 39 U/L (12-78); SODIUM 140 mmol/L (136-145); TOTAL PROTEIN 7.2 gm/dL (6.4-8.2)
[2019-10-30 20:35] LABS: TROPONIN I 0.086 ng/ml (<0.045)
[2019-10-30 20:40] VITALS: BP 137/83
[2019-10-30 21:00] VITALS: BP 133/77
[2019-10-30 21:50] VITALS: BP 117/61
[2019-10-30 22:20] VITALS: BP 133/75
[2019-10-31 06:57] LABS: BASO % 0.3 % (0.0-1.0); EOS # 0.1 10*3/uL (0.0-0.4); EOS % 2.1 % (1.0-4.0); HEMATOCRIT 43.4 % (42.0-52.0); LYMPH # 2.3 10*3/uL (1.3-4.4); LYMPH % 35.4 % (27.0-41.0); MEAN CELL VOLUME 87.3 fl (80.0-94.0); MEAN CORPUSCULAR HGB CONC 33.2 g/dl (33.0-37.0); MEAN PLATELET VOLUME 10.9 fl (9.6-12.3); MONO # 0.8 10*3/uL (0.1-1.0); MONO % 11.5 % (3.0-9.0); NEUT # 3.3 10*3/uL (2.3-7.9); NEUT % 50.2 % (47.0-73.0); PLATELET COUNT AUTOMATED 235 10*3/uL (130-400); RED BLOOD COUNT 4.97 10*6/uL (4.50-5.90); RED CELL DISTRI WIDTH 14.6 % (0-14.5); WHITE BLOOD COUNT 6.5 10*3/uL (4.8-10.8)
[2019-10-31 07:18] LABS: BUN 21 mg/dl (7-24); CHLORIDE 110 mmol/L (98-107); CREATININE 0.85 mg/dL (0.70-1.30); POTASSIUM 3.5 mmol/L (3.5-5.1); SODIUM 140 mmol/L (136-145)
[2019-10-31 08:00] VITALS: BP 128/54
== END 2019-10-31 12:35 | disposition home or self-care (01) | DRG 313 ==
LOC: ED 19:07 → EDHOLD 21:41 → 5E 21:41
PROVIDERS: Emergency Medicine; Internal Medicine; ADMIT Emergency Medicine
DX: R07.9 Chest pain, unspecified (principal); J44.9 Chronic obstructive pulmonary disease, unspecified; K21.9 Gastro-esophageal reflux disease without esophagitis; R11.2 Nausea with vomiting, unspecified; F17.210 Nicotine dependence, cigarettes, uncomplicated; R79.89 Other specified abnormal findings of blood chemistry; E83.41 Hypermagnesemia; Z88.5 Allergy status to narcotic agent; Z91.030 Bee allergy status; Z91.81 History of falling; I25.2 Old myocardial infarction; Z98.1 Arthrodesis status; Z82.49 Family history of ischemic heart disease and other diseases of the circulatory system

== ENCOUNTER 2020-01-09 14:54 | Emergency (ER) | payer MEDICARE ==
[~2020-01-09] VITALS: Ht 177.8 cm; Wt 81.2 kg
[2020-01-09 15:22] VITALS: BP 131/84
[2020-01-09 15:46] LABS: BASO % 0.6 % (0.0-1.0); EOS # 0.1 10*3/uL (0.0-0.4); EOS % 2.4 % (1.0-4.0); HEMATOCRIT 43.3 % (42.0-52.0); LYMPH # 1.8 10*3/uL (1.3-4.4); LYMPH % 32.5 % (27.0-41.0); MEAN CELL VOLUME 87.5 fl (80.0-94.0); MEAN CORPUSCULAR HGB 29.3 pg (27.0-31.0); MEAN CORPUSCULAR HGB CONC 33.5 g/dl (33.0-37.0); MEAN PLATELET VOLUME 10.4 fl (9.6-12.3); MONO # 0.6 10*3/uL (0.1-1.0); MONO % 11.3 % (3.0-9.0); NEUT # 2.9 10*3/uL (2.3-7.9); PLATELET COUNT AUTOMATED 215 10*3/uL (130-400); RED BLOOD COUNT 4.95 10*6/uL (4.50-5.90); RED CELL DISTRI WIDTH 14.1 % (0-14.5); WHITE BLOOD COUNT 5.4 10*3/uL (4.8-10.8)
[2020-01-09 15:57] LABS: ACT PARTIAL THROMBO TIME 24.8 SECONDS (20.0-32.1); INTERNATIONAL NORM RATIO 0.9 (2.0-3.5)
[2020-01-09 16:03] LABS: ALBUMIN 3.7 gm/dl (3.1-4.5); ALKALINE PHOSPHATASE 118 U/L (45-117); BUN 19 mg/dl (7-24); CHLORIDE 109 mmol/L (98-107); CREATININE 0.91 mg/dL (0.70-1.30); POTASSIUM 3.8 mmol/L (3.5-5.1); SGOT/AST 18 IU/L (3-35); SGPT/ALT 36 U/L (12-78); SODIUM 141 mmol/L (136-145); TOTAL PROTEIN 7.2 gm/dL (6.4-8.2); TROPONIN I 0.035 ng/ml (<0.045)
== END 2020-01-09 17:23 | disposition home or self-care (01) ==
LOC: ED 14:54
PROVIDERS: Nurse Practitioner Family
DX: M79.604 Pain in right leg (principal); I25.2 Old myocardial infarction; J44.9 Chronic obstructive pulmonary disease, unspecified; F41.9 Anxiety disorder, unspecified; F17.200 Nicotine dependence, unspecified, uncomplicated; Z88.5 Allergy status to narcotic agent; Z91.030 Bee allergy status

== ENCOUNTER 2020-03-16 11:49 | Emergency (ER) | payer MEDICARE ==
[~2020-03-16] VITALS: Ht 177.8 cm; Wt 81.2 kg
[2020-03-16 11:54] VITALS: BP 149/81
[2020-03-16 12:43] LABS: BASO % 0.3 % (0.0-1.0); EOS # 0.1 10*3/uL (0.0-0.4); EOS % 1.1 % (1.0-4.0); HEMATOCRIT 46.9 % (42.0-52.0); LYMPH # 1.2 10*3/uL (1.3-4.4); MEAN CELL VOLUME 86.5 fl (80.0-94.0); MEAN CORPUSCULAR HGB 28.6 pg (27.0-31.0); MONO # 0.4 10*3/uL (0.1-1.0); MONO % 5.9 % (3.0-9.0); NEUT # 4.6 10*3/uL (2.3-7.9); NEUT % 73.2 % (47.0-73.0); PLATELET COUNT AUTOMATED 260 10*3/uL (130-400); RED BLOOD COUNT 5.42 10*6/uL (4.50-5.90); RED CELL DISTRI WIDTH 13.9 % (0-14.5); WHITE BLOOD COUNT 6.3 10*3/uL (4.8-10.8)
[2020-03-16 13:01] LABS: ACT PARTIAL THROMBO TIME 25.4 SECONDS (20.0-32.1); INTERNATIONAL NORM RATIO 0.9 (2.0-3.5)
[2020-03-16 13:02] LABS: ALBUMIN 3.7 gm/dl (3.1-4.5); ALKALINE PHOSPHATASE 130 U/L (45-117); BUN 10 mg/dl (7-24); CHLORIDE 107 mmol/L (98-107); CREATININE 0.68 mg/dL (0.70-1.30); LIPASE 91 U/L (73-393); POTASSIUM 3.7 mmol/L (3.5-5.1); SGOT/AST 14 IU/L (3-35); SGPT/ALT 38 U/L (12-78); SODIUM 137 mmol/L (136-145); TOTAL PROTEIN 7.1 gm/dL (6.4-8.2)
[2020-03-16 14:49] LABS: BILIRUBIN Negative (Negative); BLOOD Negative (Negative); CLARITY Clear (Clear); COLOR Yellow (Yellow); GLUCOSE Negative (Negative); KETONE Negative (Negative); LEUKO ESTERASE Negative (Negative); NITRITE Negative (Negative); SPECIFIC GRAVITY 1.015 (1.001-1.030); UROBILINOGEN 0.2 E.U./dl (0.0-1.0)
[2020-03-16 14:55] LABS: EPITHELIAL CELLS 0-2; RBC 0-2 rbc/hpf (0-2); WBC 0-2 wbc/hpf (0-5)
[2020-03-16 14:56] LABS: BACTERIA 2+
[2020-03-16] MEDS ORDERED: ZOFRAN4 MG PO (15:08)
== END 2020-03-16 15:10 | disposition home or self-care (01) ==
LOC: ED 11:49
PROVIDERS: Emergency Medicine
DX: K52.9 Noninfective gastroenteritis and colitis, unspecified (principal); I25.2 Old myocardial infarction; J44.9 Chronic obstructive pulmonary disease, unspecified; F41.9 Anxiety disorder, unspecified; F32.9 Major depressive disorder, single episode, unspecified; F17.200 Nicotine dependence, unspecified, uncomplicated

== ENCOUNTER 2020-03-24 07:48 | Emergency (ER) | payer MEDICARE ==
[~2020-03-24] VITALS: Ht 177.8 cm; Wt 78.0 kg
[2020-03-24 07:54] VITALS: BP 163/90
[2020-03-24] MEDS ORDERED: Motrin,Rufen800 MG PO (10:46)
[2020-03-24] MEDS ORDERED: CYCLOBENZAPRINE10 MG PO (10:46)
== END 2020-03-24 11:47 | disposition home or self-care (01) ==
LOC: ED 07:48
DX: S39.012A Strain of muscle, fascia and tendon of lower back, initial encounter (principal); I25.2 Old myocardial infarction; F41.9 Anxiety disorder, unspecified; F32.9 Major depressive disorder, single episode, unspecified; J44.9 Chronic obstructive pulmonary disease, unspecified; K21.9 Gastro-esophageal reflux disease without esophagitis; X58.XXXA Exposure to other specified factors, initial encounter; Y93.89 Activity, other specified; Y92.89 Other specified places as the place of occurrence of the external cause; Y99.8 Other external cause status

== ENCOUNTER 2020-06-13 16:40 | Emergency (ER) | payer MEDICARE ==
[~2020-06-13] VITALS: Ht 177.8 cm; Wt 77.1 kg
[~2020-06-13 16:40] MED LIST changes: +Motrin,Rufen800 MG PO
[2020-06-13 17:11] VITALS: BP 143/70
== END 2020-06-13 17:50 | disposition left against medical advice (07) ==
LOC: ED 16:40
DX: M79.671 Pain in right foot (principal); Z53.21 Procedure and treatment not carried out due to patient leaving prior to being seen by health care provider

== ENCOUNTER 2020-06-16 12:39 | Emergency (ER) | payer MEDICARE ==
[~2020-06-16] VITALS: Ht 177.8 cm; Wt 81.2 kg
[2020-06-16 13:09] VITALS: BP 153/84
== END 2020-06-16 15:50 | disposition home or self-care (01) ==
LOC: ED 12:39
DX: S90.121A Contusion of right lesser toe(s) without damage to nail, initial encounter (principal); S90.31XA Contusion of right foot, initial encounter; F41.9 Anxiety disorder, unspecified; F32.9 Major depressive disorder, single episode, unspecified; J44.9 Chronic obstructive pulmonary disease, unspecified; K21.9 Gastro-esophageal reflux disease without esophagitis; I25.2 Old myocardial infarction; F17.200 Nicotine dependence, unspecified, uncomplicated; Z91.030 Bee allergy status; Z88.5 Allergy status to narcotic agent; Z79.899 Other long term (current) drug therapy; Z98.890 Other specified postprocedural states; W20.8XXA Other cause of strike by thrown, projected or falling object, initial encounter; Y93.89 Activity, other specified; Y92.89 Other specified places as the place of occurrence of the external cause; Y99.8 Other external cause status

== ENCOUNTER 2020-08-05 16:41 | Observation (INO) | payer MEDICARE ==
[~2020-08-05] VITALS: Ht 175.2 cm; Wt 78.6 kg
[2020-08-05 17:12] LABS: BASO % 0.3 % (0.0-1.0); EOS % 0.1 % (1.0-4.0); LYMPH # 1.8 10*3/uL (1.3-4.4); LYMPH % 18.5 % (27.0-41.0); MEAN CELL VOLUME 84.4 fl (80.0-94.0); MEAN CORPUSCULAR HGB 28.6 pg (27.0-31.0); MEAN CORPUSCULAR HGB CONC 33.9 g/dl (33.0-37.0); MEAN PLATELET VOLUME 9.9 fl (9.6-12.3); MONO # 0.8 10*3/uL (0.1-1.0); MONO % 8.1 % (3.0-9.0); NEUT # 7.2 10*3/uL (2.3-7.9); NEUT % 72.7 % (47.0-73.0); PLATELET COUNT AUTOMATED 290 10*3/uL (130-400); RED BLOOD COUNT 6.04 10*6/uL (4.50-5.90); RED CELL DISTRI WIDTH 13.3 % (0-14.5); WHITE BLOOD COUNT 9.9 10*3/uL (4.8-10.8)
[2020-08-05 17:25] LABS: ACT PARTIAL THROMBO TIME 23.3 SECONDS (20.0-32.1)
[2020-08-05 17:32] LABS: ALKALINE PHOSPHATASE 163 U/L (45-117); BUN 24 mg/dl (7-24); CHLORIDE 103 mmol/L (98-107); CREATININE 1.11 mg/dL (0.70-1.30); LIPASE 83 U/L (73-393); POTASSIUM 3.5 mmol/L (3.5-5.1); SGOT/AST 15 IU/L (3-35); SGPT/ALT 38 U/L (12-78); SODIUM 138 mmol/L (136-145); TOTAL PROTEIN 8.2 gm/dL (6.4-8.2)
[2020-08-05 17:38] LABS: ABG BASE EXCESS 3.7 mmol/L (-2.0-2.0); ARTERIAL BLOOD GAS PH 7.626 (7.35-7.45); ARTERIAL BLOOD GAS PO2 90.4 (80-90)
[2020-08-05 17:39] LABS: ETHYL ALCOHOL < 3.0 mg/dl (<3)
[2020-08-05 17:52] VITALS: BP 149/79
[2020-08-05 20:08] VITALS: BP 142/70
[2020-08-05 20:55] VITALS: BP 151/81
[2020-08-06] VITALS: BP 119/71
[2020-08-06 03:02] LABS: BILIRUBIN Negative (Negative); BLOOD Negative (Negative); CLARITY Clear (Clear); COLOR Dark Yellow (Yellow); GLUCOSE Negative (Negative); KETONE 1+ (Negative); LEUKO ESTERASE Negative (Negative); NITRITE Negative (Negative); SPECIFIC GRAVITY >= 1.030 (1.001-1.030)
[2020-08-06 03:11] LABS: URINE AMPHETAMINES < 1000 (1000ng/ml); URINE BARBITURATES < 200 (200ng/ml); URINE BENZODIAZEPINES < 200 (200ng/ml); URINE CANNABINOIDS (THC) > 50 (50ng/ml); URINE COCAINE < 300 (300ng/ml); URINE METHADONE < 300 (300ng/ml); URINE OPIATES < 300 (300ng/ml)
[2020-08-06 03:14] LABS: URINE PHENCYCLIDINE < 25 (25ng/ml)
[2020-08-06 03:24] LABS: BACTERIA TRACE; MUCOUS 2+; RBC 0-2 rbc/hpf (0-2)
[2020-08-06 07:01] LABS: BASO % 0.5 % (0.0-1.0); EOS # 0.1 10*3/uL (0.0-0.4); EOS % 1.1 % (1.0-4.0); LYMPH # 2.6 10*3/uL (1.3-4.4); LYMPH % 32.8 % (27.0-41.0); MEAN CELL VOLUME 87.1 fl (80.0-94.0); MEAN CORPUSCULAR HGB 28.6 pg (27.0-31.0); MEAN CORPUSCULAR HGB CONC 32.8 g/dl (33.0-37.0); MEAN PLATELET VOLUME 10.4 fl (9.6-12.3); MONO # 0.7 10*3/uL (0.1-1.0); MONO % 9.2 % (3.0-9.0); NEUT # 4.5 10*3/uL (2.3-7.9); PLATELET COUNT AUTOMATED 265 10*3/uL (130-400); RED BLOOD COUNT 5.28 10*6/uL (4.50-5.90); RED CELL DISTRI WIDTH 13.5 % (0-14.5)
[2020-08-06 07:13] LABS: BUN 25 mg/dl (7-24); CHLORIDE 110 mmol/L (98-107); CHOLESTEROL 179 mg/dL (<200); CREATININE 0.84 mg/dL (0.70-1.30); HDL CHOLESTEROL 74 mg/dl (40-60); LDH 158 U/L (87-241); LDL CHOLESTEROL 92 mg/dL (9-159); SODIUM 141 mmol/L (136-145); TRIGLYCERIDES 64 mg/dl (<150); VLDL CHOLESTEROL 13 mg/dL (6-40)
[2020-08-06 08:00] VITALS: BP 141/81
[2020-08-06 08:14] LABS: FERRITIN 99.2 ng/mL (22.0-322.0); VITAMIN D, 25-HYDROXY 41.7 ng/mL (30-100)
== END 2020-08-06 12:30 | disposition home or self-care (01) ==
LOC: ED 16:41 → EDHOLD 18:41 → 4E 18:41
PROVIDERS: Emergency Medicine; Internal Medicine; ADMIT Emergency Medicine; ATTEND Emergency Medicine
DX: R07.9 Chest pain, unspecified (principal); R11.2 Nausea with vomiting, unspecified; E87.3 Alkalosis; J44.9 Chronic obstructive pulmonary disease, unspecified; R79.89 Other specified abnormal findings of blood chemistry; E83.41 Hypermagnesemia; E83.39 Other disorders of phosphorus metabolism; E87.8 Other disorders of electrolyte and fluid balance, not elsewhere classified; I25.10 Atherosclerotic heart disease of native coronary artery without angina pectoris; J44.1 Chronic obstructive pulmonary disease with (acute) exacerbation; K21.9 Gastro-esophageal reflux disease without esophagitis; I25.2 Old myocardial infarction; F17.200 Nicotine dependence, unspecified, uncomplicated; F10.20 Alcohol dependence, uncomplicated; F12.10 Cannabis abuse, uncomplicated; Z20.828 Contact with and (suspected) exposure to other viral communicable diseases; Z71.6 Tobacco abuse counseling

== ENCOUNTER 2020-08-07 16:03 | Observation (INO) | payer MEDICARE ==
[~2020-08-07] VITALS: Ht 175.2 cm; Wt 80.1 kg
[2020-08-07 16:13] VITALS: BP 138/89
[2020-08-07 16:32] LABS: BASO % 0.6 % (0.0-1.0); EOS # 0.2 10*3/uL (0.0-0.4); HEMATOCRIT 47.1 % (42.0-52.0); LYMPH % 28.9 % (27.0-41.0); MEAN CELL VOLUME 86.7 fl (80.0-94.0); MEAN CORPUSCULAR HGB 28.9 pg (27.0-31.0); MEAN CORPUSCULAR HGB CONC 33.3 g/dl (33.0-37.0); MEAN PLATELET VOLUME 10.2 fl (9.6-12.3); MONO # 0.6 10*3/uL (0.1-1.0); MONO % 7.8 % (3.0-9.0); NEUT # 4.2 10*3/uL (2.3-7.9); NEUT % 59.4 % (47.0-73.0); PLATELET COUNT AUTOMATED 269 10*3/uL (130-400); RED BLOOD COUNT 5.43 10*6/uL (4.50-5.90); RED CELL DISTRI WIDTH 13.4 % (0-14.5); WHITE BLOOD COUNT 7.1 10*3/uL (4.8-10.8)
[2020-08-07 16:54] LABS: ACT PARTIAL THROMBO TIME 23.2 SECONDS (20.0-32.1); INTERNATIONAL NORM RATIO 0.9 (2.0-3.5)
[2020-08-07 16:55] LABS: LIPASE 114 U/L (73-393)
[2020-08-07 16:56] LABS: ALBUMIN 3.8 gm/dl (3.1-4.5); ALKALINE PHOSPHATASE 142 U/L (45-117); BUN 19 mg/dl (7-24); CHLORIDE 107 mmol/L (98-107); CREATININE 0.89 mg/dL (0.70-1.30); POTASSIUM 3.6 mmol/L (3.5-5.1); SGOT/AST 17 IU/L (3-35); SGPT/ALT 40 U/L (12-78); SODIUM 139 mmol/L (136-145); TOTAL PROTEIN 7.5 gm/dL (6.4-8.2)
[2020-08-07 17:01] LABS: TROPONIN I 0.046 ng/ml (<0.045)
[2020-08-07 23:12] VITALS: BP 136/90
[2020-08-08 03:02] VITALS: BP 140/80
[2020-08-08 05:58] VITALS: BP 110/70
[2020-08-08 06:18] LABS: BASO % 0.5 % (0.0-1.0); EOS # 0.3 10*3/uL (0.0-0.4); EOS % 4.1 % (1.0-4.0); HEMATOCRIT 44.1 % (42.0-52.0); LYMPH # 2.5 10*3/uL (1.3-4.4); LYMPH % 38.1 % (27.0-41.0); MEAN CELL VOLUME 87.5 fl (80.0-94.0); MEAN CORPUSCULAR HGB CONC 33.1 g/dl (33.0-37.0); MONO # 0.6 10*3/uL (0.1-1.0); MONO % 9.7 % (3.0-9.0); NEUT # 3.1 10*3/uL (2.3-7.9); NEUT % 47.1 % (47.0-73.0); PLATELET COUNT AUTOMATED 257 10*3/uL (130-400); RED BLOOD COUNT 5.04 10*6/uL (4.50-5.90); RED CELL DISTRI WIDTH 13.4 % (0-14.5); WHITE BLOOD COUNT 6.6 10*3/uL (4.8-10.8)
[2020-08-08 06:29] LABS: BUN 18 mg/dl (7-24); CHLORIDE 109 mmol/L (98-107); POTASSIUM 4.2 mmol/L (3.5-5.1); SODIUM 140 mmol/L (136-145)
[2020-08-08 06:30] LABS: CREATININE 0.76 mg/dL (0.70-1.30)
[2020-08-08 07:49] VITALS: BP 113/72
[2020-08-08 12:00] VITALS: BP 118/69
[2020-08-08 16:00] VITALS: BP 137/87
== END 2020-08-08 17:20 | disposition home or self-care (01) ==
LOC: ED 16:03 → EDHOLD 18:05 → 5E 08-08 08:29
PROVIDERS: Emergency Medicine; Internal Medicine; ADMIT Internal Medicine; ATTEND Internal Medicine
DX: R07.89 Other chest pain (principal); I25.2 Old myocardial infarction; R77.8 Other specified abnormalities of plasma proteins; R74.8 Abnormal levels of other serum enzymes; K50.90 Crohn's disease, unspecified, without complications; K21.9 Gastro-esophageal reflux disease without esophagitis; J44.9 Chronic obstructive pulmonary disease, unspecified; F10.10 Alcohol abuse, uncomplicated; R73.9 Hyperglycemia, unspecified; F12.10 Cannabis abuse, uncomplicated; F17.210 Nicotine dependence, cigarettes, uncomplicated

== ENCOUNTER 2020-09-04 14:44 | Emergency (ER) | payer MEDICARE ==
[~2020-09-04] VITALS: Ht 175.3 cm; Wt 80.7 kg
[2020-09-04 14:50] VITALS: BP 154/78
== END 2020-09-04 16:44 | disposition home or self-care (01) ==
LOC: ED 14:44
DX: S69.92XA Unspecified injury of left wrist, hand and finger(s), initial encounter (principal); J44.9 Chronic obstructive pulmonary disease, unspecified; F41.9 Anxiety disorder, unspecified; F32.9 Major depressive disorder, single episode, unspecified; I25.2 Old myocardial infarction; F17.200 Nicotine dependence, unspecified, uncomplicated; Z88.5 Allergy status to narcotic agent; Z98.890 Other specified postprocedural states; X58.XXXA Exposure to other specified factors, initial encounter; Y93.89 Activity, other specified; Y92.89 Other specified places as the place of occurrence of the external cause; Y99.8 Other external cause status

== ENCOUNTER 2020-10-26 13:28 | Emergency (ER) | payer MEDICARE ==
[~2020-10-26] VITALS: Ht 175.2 cm; Wt 79.4 kg
[2020-10-26 13:38] VITALS: BP 115/77
== END 2020-10-26 18:01 | disposition home or self-care (01) ==
LOC: ED 13:28
DX: M79.671 Pain in right foot (principal); I25.10 Atherosclerotic heart disease of native coronary artery without angina pectoris; Z88.5 Allergy status to narcotic agent; Z98.890 Other specified postprocedural states

== ENCOUNTER → 2020-11-21 | Outpatient (CLI) | payer MEDICARE | END | disposition home or self-care (01) | LOC: NM 09:29 | PROVIDERS: ATTEND Orthopaedic Surgery | DX: M84.374A Stress fracture, right foot, initial encounter for fracture (principal) ==

== ENCOUNTER → 2020-12-26 | Outpatient (CLI) | payer OTHER | END | disposition home or self-care (01) | LOC: MRI 10:17 | PROVIDERS: ATTEND Orthopaedic Surgery | DX: M79.671 Pain in right foot (principal) ==

== ENCOUNTER → 2021-01-14 | Outpatient (CLI) | payer OTHER ==
[~2021-01-14] VITALS: Ht 177.8 cm; Wt 81.6 kg
== END | disposition home or self-care (01) ==
LOC: LAB 08:00 → SDC 08:45 → LAB 01-17 00:46 → SDC 01-17 08:30 → EDSTATUS 01-17 08:45 → LAB 01-17 08:45 → SDC 01-17 08:45
PROVIDERS: ATTEND Orthopaedic Surgery
DX: M79.671 Pain in right foot (principal); M67.471 Ganglion, right ankle and foot; Z01.810 Encounter for preprocedural cardiovascular examination

== ENCOUNTER → 2021-01-16 | Outpatient (CLI) | payer OTHER ==
[2021-01-16 12:34] LABS: BUN 12 mg/dl (7-24); CHLORIDE 105 mmol/L (98-107); CREATININE 0.87 mg/dL (0.70-1.30); POTASSIUM 4.2 mmol/L (3.5-5.1); SODIUM 137 mmol/L (136-145)
== END | disposition home or self-care (01) ==
LOC: LAB 12:00
PROVIDERS: ATTEND Orthopaedic Surgery
DX: Z01.812 Encounter for preprocedural laboratory examination (principal); M79.671 Pain in right foot; M67.471 Ganglion, right ankle and foot

== ENCOUNTER → 2021-04-16 | Outpatient (CLI) | payer OTHER | END | disposition home or self-care (01) | LOC: CARD 04-09 07:00 | PROVIDERS: ATTEND Internal Medicine Cardiovascular Disease | DX: R94.31 Abnormal electrocardiogram [ECG] [EKG] (principal) ==

== ENCOUNTER 2021-05-04 09:23 | Emergency (ER) | payer OTHER ==
[~2021-05-04] VITALS: Wt 80.7 kg
[2021-05-04 09:32] VITALS: BP 151/88
== END 2021-05-04 11:44 | disposition home or self-care (01) ==
LOC: ED 09:23
DX: M67.471 Ganglion, right ankle and foot (principal); Z91.030 Bee allergy status; Z88.6 Allergy status to analgesic agent

== ENCOUNTER → 2021-05-30 | Day surgery (SDC) | payer OTHER ==
[2021-05-27 14:50] LABS: BUN 14 mg/dl (7-24); CHLORIDE 108 mmol/L (98-107); CREATININE 0.88 mg/dL (0.70-1.30); POTASSIUM 4.4 mmol/L (3.5-5.1); SODIUM 141 mmol/L (136-145)
[~2021-05-30] VITALS: Ht 177.8 cm; Wt 80.3 kg
[2021-05-30 08:00] VITALS: BP 123/78
[2021-05-30 10:30] VITALS: BP 88/44
[2021-05-30 10:45] VITALS: BP 101/58
[2021-05-30 11:00] VITALS: BP 125/78
== END | disposition home or self-care (01) ==
LOC: SDC 05-27 13:15
PROVIDERS: ATTEND Orthopaedic Surgery
DX: M67.471 Ganglion, right ankle and foot (principal); M79.671 Pain in right foot; M54.16 Radiculopathy, lumbar region; F41.9 Anxiety disorder, unspecified; F32.9 Major depressive disorder, single episode, unspecified; J44.9 Chronic obstructive pulmonary disease, unspecified; K21.9 Gastro-esophageal reflux disease without esophagitis; I25.10 Atherosclerotic heart disease of native coronary artery without angina pectoris; I25.2 Old myocardial infarction; J45.909 Unspecified asthma, uncomplicated; F17.210 Nicotine dependence, cigarettes, uncomplicated; Z88.5 Allergy status to narcotic agent; Z79.899 Other long term (current) drug therapy; Z20.822 Contact with and (suspected) exposure to COVID-19

== ENCOUNTER 2021-07-23 13:44 | Emergency (ER) | payer OTHER ==
[~2021-07-23] VITALS: Ht 177.8 cm; Wt 79.4 kg
[2021-07-23 13:52] VITALS: BP 121/74
== END 2021-07-23 16:03 | disposition left against medical advice (07) ==
LOC: ED 13:44
DX: R05.9 Cough, unspecified (principal); Z53.21 Procedure and treatment not carried out due to patient leaving prior to being seen by health care provider

== ENCOUNTER 2021-08-18 11:51 | Emergency (ER) | payer OTHER ==
[~2021-08-18] VITALS: Ht 177.8 cm; Wt 77.1 kg
[2021-08-18 12:33] VITALS: BP 153/83
[2021-08-18] MEDS ORDERED: METHOCARBAMOL500 M1 PO (14:21)
[2021-08-18] MEDS ORDERED: IBUPROFEN600 MG PO (14:21)
== END 2021-08-18 14:20 | disposition home or self-care (01) ==
LOC: ED 11:51
DX: S29.011A Strain of muscle and tendon of front wall of thorax, initial encounter (principal); Z91.030 Bee allergy status; Z88.6 Allergy status to analgesic agent; Z98.890 Other specified postprocedural states; Z87.891 Personal history of nicotine dependence; X50.1XXA Overexertion from prolonged static or awkward postures, initial encounter; Y93.89 Activity, other specified; Y92.89 Other specified places as the place of occurrence of the external cause; Y99.8 Other external cause status

== ENCOUNTER → 2021-09-02 | Outpatient (CLI) | payer OTHER ==
[~2021-09-02] MED LIST changes: +IBUPROFEN600 MG PO; +METHOCARBAMOL500 M1 PO
== END | disposition home or self-care (01) ==
LOC: US 13:03
PROVIDERS: ATTEND Orthopaedic Surgery
DX: I73.9 Peripheral vascular disease, unspecified (principal)

== ENCOUNTER 2021-10-11 15:57 | Emergency (ER) | payer OTHER ==
[~2021-10-11] VITALS: Wt 81.2 kg
[2021-10-11 16:27] VITALS: BP 135/75
[2021-10-11 16:31] LABS: BASO % 0.4 % (0.0-1.0); EOS # 0.2 10*3/uL (0.0-0.4); EOS % 1.9 % (1.0-4.0); HEMATOCRIT 45.3 % (42.0-52.0); LYMPH # 1.4 10*3/uL (1.3-4.4); LYMPH % 17.1 % (27.0-41.0); MEAN CELL VOLUME 85.5 fl (80.0-94.0); MEAN CORPUSCULAR HGB 28.5 pg (27.0-31.0); MEAN CORPUSCULAR HGB CONC 33.3 g/dl (33.0-37.0); MEAN PLATELET VOLUME 10.2 fl (9.6-12.3); MONO # 0.4 10*3/uL (0.1-1.0); MONO % 5.5 % (3.0-9.0); NEUT % 74.7 % (47.0-73.0); PLATELET COUNT AUTOMATED 237 10*3/uL (130-400); RED CELL DISTRI WIDTH 13.9 % (0-14.5)
[2021-10-11] MEDS ORDERED: LATANOPROST2.5 ML OP (16:37)
[2021-10-11 16:42] LABS: ACT PARTIAL THROMBO TIME 22.8 SECONDS (20.0-32.1); INTERNATIONAL NORM RATIO 0.9 (2.0-3.5)
[2021-10-11 16:48] LABS: ALKALINE PHOSPHATASE 137 U/L (45-117); BUN 16 mg/dl (7-24); CHLORIDE 105 mmol/L (98-107); CREATININE 0.87 mg/dL (0.70-1.30); LIPASE 104 U/L (73-393); POTASSIUM 3.6 mmol/L (3.5-5.1); SGOT/AST 22 IU/L (3-35); SGPT/ALT 32 U/L (12-78); SODIUM 139 mmol/L (136-145); TOTAL PROTEIN 7.5 gm/dL (6.4-8.2)
[2021-10-11] MEDS ORDERED: ZOFRAN4 MG PO (17:54)
== END 2021-10-11 18:10 | disposition home or self-care (01) ==
LOC: ED 15:57
PROVIDERS: Emergency Medicine
DX: R11.2 Nausea with vomiting, unspecified (principal); Z91.030 Bee allergy status; Z88.8 Allergy status to other drugs, medicaments and biological substances; Z98.890 Other specified postprocedural states; Z87.891 Personal history of nicotine dependence

== ENCOUNTER 2021-11-05 10:12 | Emergency (ER) | payer OTHER ==
[~2021-11-05] VITALS: Wt 81.2 kg
[~2021-11-05 10:12] MED LIST changes: +LATANOPROST2.5 ML OP
[2021-11-05] MEDS ORDERED: CYCLOBENZAPRINE10 MG PO (10:32)
[2021-11-05] MEDS ORDERED: NICODERM CQ1 EAC2 T (10:33)
[2021-11-05 10:48] LABS: BASO % 0.4 % (0.0-1.0); EOS # 0.2 10*3/uL (0.0-0.4); EOS % 3.8 % (1.0-4.0); HEMATOCRIT 47.3 % (42.0-52.0); LYMPH # 1.7 10*3/uL (1.3-4.4); MEAN CORPUSCULAR HGB 28.7 pg (27.0-31.0); MEAN CORPUSCULAR HGB CONC 33.4 g/dl (33.0-37.0); MONO # 0.5 10*3/uL (0.1-1.0); MONO % 9.6 % (3.0-9.0); NEUT # 2.8 10*3/uL (2.3-7.9); PLATELET COUNT AUTOMATED 266 10*3/uL (130-400); RED CELL DISTRI WIDTH 13.9 % (0-14.5); WHITE BLOOD COUNT 5.2 10*3/uL (4.8-10.8)
[2021-11-05 10:59] LABS: ACT PARTIAL THROMBO TIME 24.8 SECONDS (20.0-32.1); INTERNATIONAL NORM RATIO 0.9 (2.0-3.5)
[2021-11-05 11:08] LABS: ALKALINE PHOSPHATASE 139 U/L (45-117); BUN 16 mg/dl (7-24); CHLORIDE 106 mmol/L (98-107); CREATININE 0.83 mg/dL (0.70-1.30); LIPASE 67 U/L (73-393); POTASSIUM 4.1 mmol/L (3.5-5.1); SGOT/AST 29 IU/L (3-35); SGPT/ALT 39 U/L (12-78); SODIUM 139 mmol/L (136-145); TOTAL PROTEIN 7.5 gm/dL (6.4-8.2)
[2021-11-05 11:10] LABS: ETHYL ALCOHOL < 3.0 mg/dl (<3)
[2021-11-05 11:43] LABS: BILIRUBIN Negative (Negative); BLOOD Negative (Negative); CLARITY Clear (Clear); COLOR Yellow (Yellow); GLUCOSE Negative (Negative); KETONE Negative (Negative); LEUKO ESTERASE Negative (Negative); NITRITE Negative (Negative); UROBILINOGEN 0.2 E.U./dl (0.0-1.0)
[2021-11-05 11:50] LABS: URINE AMPHETAMINES < 1000 (1000ng/ml); URINE BARBITURATES < 200 (200ng/ml); URINE BENZODIAZEPINES < 200 (200ng/ml); URINE CANNABINOIDS (THC) > 50 (50ng/ml); URINE COCAINE < 300 (300ng/ml); URINE METHADONE < 300 (300ng/ml); URINE OPIATES < 300 (300ng/ml)
[2021-11-05 11:53] LABS: URINE PHENCYCLIDINE < 25 (25ng/ml)
[2021-11-05 11:59] LABS: EPITHELIAL CELLS 0-2; WBC 0-2 wbc/hpf (0-5)
[2021-11-05] MEDS ORDERED: NAPROXEN500 MG PO (13:51)
[2021-11-05 16:15] VITALS: BP 147/91
== END 2021-11-05 16:48 ==
LOC: ED 10:12
PROVIDERS: Emergency Medicine
DX: F43.21 Adjustment disorder with depressed mood (principal); Z20.822 Contact with and (suspected) exposure to COVID-19; Z79.899 Other long term (current) drug therapy; Z91.030 Bee allergy status; Z88.6 Allergy status to analgesic agent; Z98.890 Other specified postprocedural states; Z87.891 Personal history of nicotine dependence

== ENCOUNTER → 2022-02-11 | Outpatient (CLI) | payer OTHER ==
[~2022-02-11] MED LIST changes: +NAPROXEN500 MG PO; +NICODERM CQ1 EAC2 T
== END | disposition home or self-care (01) ==
LOC: RAD 12:30
PROVIDERS: ATTEND Family Medicine
DX: M47.812 Spondylosis without myelopathy or radiculopathy, cervical region (principal); M48.02 Spinal stenosis, cervical region; M47.816 Spondylosis without myelopathy or radiculopathy, lumbar region; M48.07 Spinal stenosis, lumbosacral region; M75.102 Unspecified rotator cuff tear or rupture of left shoulder, not specified as traumatic; M51.37 Other intervertebral disc degeneration, lumbosacral region; M50.30 Other cervical disc degeneration, unspecified cervical region

== ENCOUNTER → 2022-04-21 | Outpatient (CLI) | payer OTHER | END | disposition home or self-care (01) | LOC: US 04-17 00:59 | PROVIDERS: ATTEND Family Medicine | DX: I73.9 Peripheral vascular disease, unspecified (principal) ==

== ENCOUNTER → 2022-05-28 | Outpatient (CLI) | payer OTHER | END | disposition home or self-care (01) | LOC: MRI 03-28 08:00 | PROVIDERS: ATTEND Family Medicine | DX: M47.812 Spondylosis without myelopathy or radiculopathy, cervical region (principal); M47.816 Spondylosis without myelopathy or radiculopathy, lumbar region; M50.30 Other cervical disc degeneration, unspecified cervical region; M51.37 Other intervertebral disc degeneration, lumbosacral region; M48.07 Spinal stenosis, lumbosacral region; M48.061 Spinal stenosis, lumbar region without neurogenic claudication; M48.02 Spinal stenosis, cervical region ==

== ENCOUNTER → 2022-07-02 | Outpatient (CLI) | payer OTHER | END | disposition home or self-care (01) | LOC: RAD 12:02 | PROVIDERS: ATTEND Family Medicine | DX: M19.071 Primary osteoarthritis, right ankle and foot (principal) ==

== ENCOUNTER 2022-10-11 13:18 | Emergency (ER) | payer OTHER ==
[2022-10-11 13:34] VITALS: BP 149/73
== END 2022-10-11 13:40 | disposition home or self-care (01) ==
LOC: ED 13:18
DX: S40.261A Insect bite (nonvenomous) of right shoulder, initial encounter (principal); F17.200 Nicotine dependence, unspecified, uncomplicated; Z91.030 Bee allergy status; Z88.8 Allergy status to other drugs, medicaments and biological substances; Z79.899 Other long term (current) drug therapy; Z98.890 Other specified postprocedural states; W57.XXXA Bitten or stung by nonvenomous insect and other nonvenomous arthropods, initial encounter; Y93.89 Activity, other specified; Y92.89 Other specified places as the place of occurrence of the external cause; Y99.8 Other external cause status

== ENCOUNTER → 2022-11-19 | Outpatient (CLI) | payer OTHER ==
[2022-11-19 12:40] LABS: BUN 17 mg/dl (9-23)
== END | disposition home or self-care (01) ==
LOC: LAB 11:42
PROVIDERS: ATTEND Radiology Vascular & Interventional Radiology
DX: I70.221 Atherosclerosis of native arteries of extremities with rest pain, right leg (principal)

== ENCOUNTER → 2023-01-27 | Outpatient (CLI) | payer OTHER ==
[~2023-01-27] MED LIST changes: +CLINDAMYCIN HC300 MG PO
[2023-01-27 10:33] LABS: ACT PARTIAL THROMBO TIME 26.5 SECONDS (20.0-32.1)
[2023-01-27 10:56] LABS: ALKALINE PHOSPHATASE 148 U/L (46-116); BUN 9 mg/dl (9-23); CHLORIDE 107 mmol/L (98-107); POTASSIUM 4.5 mmol/L (3.4-5.1); SGPT/ALT 24 U/L (10-49)
== END | disposition home or self-care (01) ==
LOC: LAB 10:00
PROVIDERS: ATTEND Surgery Vascular Surgery
DX: I70.221 Atherosclerosis of native arteries of extremities with rest pain, right leg (principal)

== ENCOUNTER 2023-02-06 10:15 | Emergency (ER) | payer OTHER ==
[~2023-02-06] VITALS: Wt 76.7 kg
[~2023-02-06 10:15] MED LIST changes: -CLINDAMYCIN HC300 MG PO
[2023-02-06 10:25] VITALS: BP 137/94
[2023-02-06 10:58] LABS: BASO % 0.5 % (0.0-1.0); EOS # 0.2 10*3/uL (0.0-0.4); EOS % 2.7 % (1.0-4.0); HEMATOCRIT 45.6 % (42.0-52.0); LYMPH # 1.8 10*3/uL (1.3-4.4); LYMPH % 23.4 % (27.0-41.0); MEAN CELL VOLUME 87.4 fl (80.0-94.0); MEAN CORPUSCULAR HGB 28.5 pg (27.0-31.0); MEAN CORPUSCULAR HGB CONC 32.7 g/dl (33.0-37.0); MEAN PLATELET VOLUME 10.2 fl (9.6-12.3); MONO # 0.8 10*3/uL (0.1-1.0); MONO % 9.6 % (3.0-9.0); NEUT % 63.3 % (47.0-73.0); PLATELET COUNT AUTOMATED 222 10*3/uL (130-400); RED BLOOD COUNT 5.22 10*6/uL (4.50-5.90); RED CELL DISTRI WIDTH 14.5 % (0-14.5); WHITE BLOOD COUNT 7.9 10*3/uL (4.8-10.8)
[2023-02-06 11:21] LABS: ALKALINE PHOSPHATASE 133 U/L (46-116); BUN 13 mg/dl (9-23); CHLORIDE 104 mmol/L (98-107); POTASSIUM 4.2 mmol/L (3.4-5.1); SGPT/ALT 17 U/L (10-49); TOTAL PROTEIN 6.9 gm/dL (6.0-8.0)
[2023-02-06] MEDS ORDERED: CLINDAMYCIN HC300 MG PO (11:50)
== END 2023-02-06 11:52 | disposition home or self-care (01) ==
LOC: ED 10:15
PROVIDERS: Emergency Medicine
DX: L03.115 Cellulitis of right lower limb (principal); F17.200 Nicotine dependence, unspecified, uncomplicated; Z91.030 Bee allergy status; Z88.5 Allergy status to narcotic agent; Z79.899 Other long term (current) drug therapy; Z98.890 Other specified postprocedural states

== ENCOUNTER 2023-04-20 18:23 | Emergency (ER) | payer OTHER ==
[~2023-04-20] VITALS: Ht 177.8 cm; Wt 79.4 kg
[~2023-04-20 18:23] MED LIST changes: +CLINDAMYCIN HC300 MG PO
[2023-04-20 18:33] VITALS: BP 155/74
[2023-04-20] MEDS ORDERED: ASPIRIN ADULT L81 M2 PO (18:34)
[2023-04-20] MEDS ORDERED: SIMVASTATIN40 MG PO (18:34)
[2023-04-20 19:33] LABS: BASO # 0.1 10*3/uL (0.0-0.1); BASO % 0.9 % (0.0-1.0); EOS # 0.2 10*3/uL (0.0-0.4); EOS % 4.4 % (1.0-4.0); HEMATOCRIT 41.7 % (42.0-52.0); LYMPH # 1.6 10*3/uL (1.3-4.4); LYMPH % 29.1 % (27.0-41.0); MEAN CELL VOLUME 86.9 fl (80.0-94.0); MEAN CORPUSCULAR HGB 29.6 pg (27.0-31.0); MEAN CORPUSCULAR HGB CONC 34.1 g/dl (33.0-37.0); MEAN PLATELET VOLUME 10.3 fl (9.6-12.3); MONO # 0.4 10*3/uL (0.1-1.0); MONO % 7.8 % (3.0-9.0); NEUT # 3.1 10*3/uL (2.3-7.9); NEUT % 57.4 % (47.0-73.0); PLATELET COUNT AUTOMATED 233 10*3/uL (130-400); RED CELL DISTRI WIDTH 14.5 % (0-14.5); WHITE BLOOD COUNT 5.4 10*3/uL (4.8-10.8)
[2023-04-20 19:47] LABS: ACT PARTIAL THROMBO TIME 24.4 SECONDS (20.0-32.1)
[2023-04-20 19:53] LABS: ALKALINE PHOSPHATASE 126 U/L (46-116); BUN 12 mg/dl (9-23); CHLORIDE 109 mmol/L (98-107); LIPASE 36 U/L (12-53); POTASSIUM 3.4 mmol/L (3.4-5.1); SGPT/ALT 33 U/L (5-49); TOTAL PROTEIN 6.6 gm/dL (6.0-8.0)
[2023-04-20] MEDS ORDERED: MELOXICAM15 MG PO (21:58)
== END 2023-04-20 22:21 | disposition home or self-care (01) ==
LOC: ED 18:23
PROVIDERS: Internal Medicine
DX: S43.402A Unspecified sprain of left shoulder joint, initial encounter (principal); M54.9 Dorsalgia, unspecified; I25.2 Old myocardial infarction; K21.9 Gastro-esophageal reflux disease without esophagitis; F41.9 Anxiety disorder, unspecified; F32.A Depression, unspecified; Z91.030 Bee allergy status; Z88.5 Allergy status to narcotic agent; Z98.890 Other specified postprocedural states; F17.290 Nicotine dependence, other tobacco product, uncomplicated; F12.90 Cannabis use, unspecified, uncomplicated; X58.XXXA Exposure to other specified factors, initial encounter; Y93.89 Activity, other specified; Y92.89 Other specified places as the place of occurrence of the external cause; Y99.8 Other external cause status

== ENCOUNTER → 2023-05-21 | Outpatient (CLI) | payer OTHER ==
[~2023-05-21] MED LIST changes: +MELOXICAM15 MG PO; +SIMVASTATIN40 MG PO
== END | disposition home or self-care (01) ==
LOC: RAD 10:19
PROVIDERS: ATTEND Family Medicine
DX: M19.012 Primary osteoarthritis, left shoulder (principal); M47.813 Spondylosis without myelopathy or radiculopathy, cervicothoracic region

== ENCOUNTER → 2023-06-04 | Outpatient (CLI) | payer OTHER | END | disposition home or self-care (01) | LOC: MRI 06-03 12:21 | PROVIDERS: ATTEND Family Medicine | DX: M75.102 Unspecified rotator cuff tear or rupture of left shoulder, not specified as traumatic (principal); M19.012 Primary osteoarthritis, left shoulder; M75.92 Shoulder lesion, unspecified, left shoulder; M75.80 Other shoulder lesions, unspecified shoulder; M25.412 Effusion, left shoulder; R60.9 Edema, unspecified; M25.712 Osteophyte, left shoulder ==

== ENCOUNTER → 2023-06-24 | Outpatient (CLI) | payer OTHER | END | disposition home or self-care (01) | LOC: US 00:16 | PROVIDERS: ATTEND Family Medicine | DX: R22.41 Localized swelling, mass and lump, right lower limb (principal); M79.604 Pain in right leg ==

== ENCOUNTER → 2023-06-30 | Outpatient (CLI) | payer OTHER | END | disposition home or self-care (01) | LOC: US 13:47 | PROVIDERS: ATTEND Family Medicine | DX: I70.201 Unspecified atherosclerosis of native arteries of extremities, right leg (principal); M79.605 Pain in left leg; M79.604 Pain in right leg; R09.89 Other specified symptoms and signs involving the circulatory and respiratory systems ==

== ENCOUNTER 2023-07-05 11:36 | Emergency (ER) | payer OTHER ==
[~2023-07-05] VITALS: Ht 177.8 cm; Wt 79.4 kg
[2023-07-05 11:45] VITALS: BP 152/75
[2023-07-05 12:23] LABS: BASO # 0.1 10*3/uL (0.0-0.1); EOS # 0.2 10*3/uL (0.0-0.4); EOS % 3.6 % (1.0-4.0); HEMATOCRIT 43.5 % (42.0-52.0); LYMPH # 1.9 10*3/uL (1.3-4.4); LYMPH % 36.5 % (27.0-41.0); MEAN CELL VOLUME 90.2 fl (80.0-94.0); MEAN CORPUSCULAR HGB 28.4 pg (27.0-31.0); MEAN CORPUSCULAR HGB CONC 31.5 g/dl (33.0-37.0); MEAN PLATELET VOLUME 10.1 fl (9.6-12.3); MONO # 0.4 10*3/uL (0.1-1.0); MONO % 8.4 % (3.0-9.0); NEUT # 2.6 10*3/uL (2.3-7.9); NEUT % 50.1 % (47.0-73.0); PLATELET COUNT AUTOMATED 275 10*3/uL (130-400); RED BLOOD COUNT 4.82 10*6/uL (4.50-5.90); RED CELL DISTRI WIDTH 13.8 % (0-14.5); WHITE BLOOD COUNT 5.2 10*3/uL (4.8-10.8)
[2023-07-05] MEDS ORDERED: CARISOPRODOL350 M1 PO (12:33)
[2023-07-05 12:45] LABS: ALKALINE PHOSPHATASE 128 U/L (46-116); BUN 10 mg/dl (9-23); CHLORIDE 110 mmol/L (98-107); POTASSIUM 3.8 mmol/L (3.4-5.1); SGPT/ALT 25 U/L (5-49); TOTAL PROTEIN 6.5 gm/dL (6.0-8.0)
[2023-07-05] MEDS ORDERED: CEPHALEXIN500 M1 PO (13:56)
[2023-07-05] MEDS ORDERED: TRAMADOL HCL50 MG PO (13:56)
== END 2023-07-05 14:00 | disposition home or self-care (01) ==
LOC: ED 11:36
PROVIDERS: Emergency Medicine
DX: L03.115 Cellulitis of right lower limb (principal); M79.671 Pain in right foot; I25.2 Old myocardial infarction; K21.9 Gastro-esophageal reflux disease without esophagitis; F41.9 Anxiety disorder, unspecified; F32.A Depression, unspecified; J44.9 Chronic obstructive pulmonary disease, unspecified; Z91.030 Bee allergy status; Z88.5 Allergy status to narcotic agent; Z98.890 Other specified postprocedural states; F17.200 Nicotine dependence, unspecified, uncomplicated; F12.90 Cannabis use, unspecified, uncomplicated

== ENCOUNTER 2023-08-08 11:55 | Emergency (ER) | payer OTHER ==
[~2023-08-08] VITALS: Ht 177.8 cm; Wt 80.7 kg
[~2023-08-08 11:55] MED LIST changes: +CARISOPRODOL350 M1 PO; +TRAMADOL HCL50 MG PO
[2023-08-08 12:30] VITALS: BP 127/76
[2023-08-08 13:17] LABS: BASO # 0.1 10*3/uL (0.0-0.1); BASO % 0.7 % (0.0-1.0); EOS # 0.3 10*3/uL (0.0-0.4); EOS % 4.6 % (1.0-4.0); HEMATOCRIT 39.3 % (42.0-52.0); LYMPH % 28.2 % (27.0-41.0); MEAN CELL VOLUME 89.1 fl (80.0-94.0); MEAN CORPUSCULAR HGB 28.6 pg (27.0-31.0); MEAN CORPUSCULAR HGB CONC 32.1 g/dl (33.0-37.0); MEAN PLATELET VOLUME 9.4 fl (9.6-12.3); MONO # 0.7 10*3/uL (0.1-1.0); MONO % 10.1 % (3.0-9.0); NEUT % 55.3 % (47.0-73.0); PLATELET COUNT AUTOMATED 328 10*3/uL (130-400); RED BLOOD COUNT 4.41 10*6/uL (4.50-5.90); RED CELL DISTRI WIDTH 13.8 % (0-14.5); WHITE BLOOD COUNT 7.2 10*3/uL (4.8-10.8)
[2023-08-08 13:35] LABS: BUN 11 mg/dl (9-23); CHLORIDE 105 mmol/L (98-107); POTASSIUM 4.4 mmol/L (3.4-5.1)
== END 2023-08-08 14:49 | disposition home or self-care (01) ==
LOC: ED 11:55
PROVIDERS: Internal Medicine
DX: I73.9 Peripheral vascular disease, unspecified (principal); R60.0 Localized edema; I25.2 Old myocardial infarction; K21.9 Gastro-esophageal reflux disease without esophagitis; F41.9 Anxiety disorder, unspecified; F32.A Depression, unspecified; M19.90 Unspecified osteoarthritis, unspecified site; F17.200 Nicotine dependence, unspecified, uncomplicated; F12.90 Cannabis use, unspecified, uncomplicated; Z91.030 Bee allergy status; Z88.5 Allergy status to narcotic agent; Z98.890 Other specified postprocedural states

== ENCOUNTER 2024-01-21 09:19 | Emergency (ER) | payer OTHER ==
[~2024-01-21] VITALS: Ht 177.8 cm; Wt 79.4 kg
[2024-01-21 09:27] VITALS: BP 149/89
== END 2024-01-21 12:01 | disposition home or self-care (01) ==
LOC: ED 09:19
DX: S90.211A Contusion of right great toe with damage to nail, initial encounter (principal); M25.571 Pain in right ankle and joints of right foot; M79.89 Other specified soft tissue disorders; I25.2 Old myocardial infarction; K21.9 Gastro-esophageal reflux disease without esophagitis; F41.9 Anxiety disorder, unspecified; F32.A Depression, unspecified; M19.90 Unspecified osteoarthritis, unspecified site; J44.9 Chronic obstructive pulmonary disease, unspecified; F17.200 Nicotine dependence, unspecified, uncomplicated; F12.90 Cannabis use, unspecified, uncomplicated; Z91.030 Bee allergy status; Z88.5 Allergy status to narcotic agent; Z98.890 Other specified postprocedural states; X58.XXXA Exposure to other specified factors, initial encounter; Y93.89 Activity, other specified; Y92.89 Other specified places as the place of occurrence of the external cause; Y99.8 Other external cause status

== ENCOUNTER 2024-02-02 15:34 | Emergency (ER) | payer OTHER ==
[~2024-02-02] VITALS: Ht 177.8 cm; Wt 79.4 kg
[~2024-02-02 15:34] MED LIST changes: -ASPERCREME LID1 EACH T
[2024-02-02 15:52] VITALS: BP 135/76
[2024-02-02] MEDS ORDERED: LIDOCAINE 1 EA PATCH T ONE (18:45)
[2024-02-02] MEDS ORDERED: ASPERCREME LID1 EACH T (18:46)
== END 2024-02-02 18:53 | disposition home or self-care (01) ==
LOC: ED 15:34
DX: R60.0 Localized edema (principal); M25.512 Pain in left shoulder; J44.9 Chronic obstructive pulmonary disease, unspecified; K21.9 Gastro-esophageal reflux disease without esophagitis; I25.2 Old myocardial infarction; F41.9 Anxiety disorder, unspecified; F32.A Depression, unspecified; F17.200 Nicotine dependence, unspecified, uncomplicated; F12.90 Cannabis use, unspecified, uncomplicated; Z91.030 Bee allergy status; Z88.5 Allergy status to narcotic agent; Z98.890 Other specified postprocedural states

== ENCOUNTER → 2024-02-02 | Emergency (ER) | payer OTHER ==
[~2024-02-02] VITALS: Ht 177.8 cm; Wt 79.4 kg
[~2024-02-02] MED LIST changes: +ASPERCREME LID1 EACH T
[2024-02-02 11:41] VITALS: BP 132/99
== END ==
LOC: ED 10:52
DX: M79.604 Pain in right leg (principal); M79.671 Pain in right foot; M79.89 Other specified soft tissue disorders; I25.2 Old myocardial infarction; K21.9 Gastro-esophageal reflux disease without esophagitis; F41.9 Anxiety disorder, unspecified; F32.A Depression, unspecified; M19.90 Unspecified osteoarthritis, unspecified site; Z91.030 Bee allergy status; Z88.5 Allergy status to narcotic agent; Z53.21 Procedure and treatment not carried out due to patient leaving prior to being seen by health care provider

== ENCOUNTER → 2024-02-04 | Outpatient (CLI) | payer OTHER ==
[~2024-02-04] MED LIST changes: +ASPERCREME LID1 EACH T
== END | disposition home or self-care (01) ==
LOC: US 14:05
PROVIDERS: ATTEND Emergency Medicine
DX: M79.89 Other specified soft tissue disorders (principal)

== ENCOUNTER 2024-03-02 10:49 | Emergency (ER) | payer OTHER ==
[~2024-03-02] VITALS: Ht 177.8 cm; Wt 79.4 kg
[2024-03-02 11:10] VITALS: BP 151/71
== END 2024-03-02 12:24 | disposition home or self-care (01) ==
LOC: ED 10:49
DX: S60.221A Contusion of right hand, initial encounter (principal); I25.2 Old myocardial infarction; K21.9 Gastro-esophageal reflux disease without esophagitis; F41.9 Anxiety disorder, unspecified; F32.A Depression, unspecified; F17.200 Nicotine dependence, unspecified, uncomplicated; F12.90 Cannabis use, unspecified, uncomplicated; Z91.030 Bee allergy status; Z88.5 Allergy status to narcotic agent; Z98.890 Other specified postprocedural states; W20.8XXA Other cause of strike by thrown, projected or falling object, initial encounter; Y93.89 Activity, other specified; Y92.009 Unspecified place in unspecified non-institutional (private) residence as the place of occurrence of the external cause; Y99.8 Other external cause status

== ENCOUNTER 2024-04-24 08:57 | Emergency (ER) | payer OTHER ==
[~2024-04-24] VITALS: Wt 80.7 kg
[2024-04-24 09:05] VITALS: BP 167/84
[2024-04-24] MEDS ORDERED: Acetaminophen/Oxycodone 5 MG/325 MG TABLET PO ONE (09:15)
[2024-04-24] MEDS ORDERED: MELOXICAM15 MG PO (09:30)
== END 2024-04-24 09:49 | disposition home or self-care (01) ==
LOC: ED 08:57
DX: S63.92XA Sprain of unspecified part of left wrist and hand, initial encounter (principal); I10 Essential (primary) hypertension; I25.2 Old myocardial infarction; K21.9 Gastro-esophageal reflux disease without esophagitis; F41.9 Anxiety disorder, unspecified; F32.A Depression, unspecified; F17.200 Nicotine dependence, unspecified, uncomplicated; F12.90 Cannabis use, unspecified, uncomplicated; Z88.5 Allergy status to narcotic agent; Z91.030 Bee allergy status; Z98.890 Other specified postprocedural states; W17.89XA Other fall from one level to another, initial encounter; Y93.89 Activity, other specified; Y92.89 Other specified places as the place of occurrence of the external cause; Y99.8 Other external cause status

== ENCOUNTER → 2024-08-22 | Outpatient (CLI) | payer OTHER | END | disposition home or self-care (01) | LOC: RAD 15:15 | PROVIDERS: ATTEND Family Medicine | DX: M19.032 Primary osteoarthritis, left wrist (principal) ==

== ENCOUNTER → 2024-08-29 | Outpatient (CLI) | payer OTHER ==
[2024-08-29 10:59] LABS: BASO # 0.1 10*3/uL (0.0-0.1); BASO % 0.8 % (0.0-1.0); BILIRUBIN Negative (Negative); BLOOD Negative (Negative); CLARITY Clear (Clear); COLOR Yellow (Yellow); EOS # 0.1 10*3/uL (0.0-0.4); EOS % 2.2 % (1.0-4.0); GLUCOSE Negative (Negative); KETONE Negative (Negative); LEUKO ESTERASE Negative (Negative); MEAN CELL VOLUME 89.2 fl (80.0-94.0); MEAN CORPUSCULAR HGB CONC 32.5 g/dl (33.0-37.0); MEAN PLATELET VOLUME 10.2 fl (9.6-12.3); MONO # 0.4 10*3/uL (0.1-1.0); MONO % 7.1 % (3.0-9.0); NEUT # 3.4 10*3/uL (2.3-7.9); NEUT % 57.4 % (47.0-73.0); NITRITE Negative (Negative); PH 6.5 (4.5-8.0); PLATELET COUNT AUTOMATED 241 10*3/uL (130-400); RED BLOOD COUNT 4.93 10*6/uL (4.50-5.90); RED CELL DISTRI WIDTH 14.6 % (0-14.5); RETICULOCYTE % 0.73 % (0.50-2.50); WHITE BLOOD COUNT 5.9 10*3/uL (4.8-10.8)
[2024-08-29 11:23] LABS: RBC 0-2 rbc/hpf (0-2); WBC 0-2 wbc/hpf (0-5)
[2024-08-29 11:39] LABS: ALKALINE PHOSPHATASE 133 U/L (46-116); BUN 14 mg/dl (9-23); CHLORIDE 109 mmol/L (98-107); CHOLESTEROL 210 mg/dL (<200); GAMMA GLUTAMYL TRANSPEPTIDASE 18 U/L (0-73); LDL CHOLESTEROL 128 mg/dL (9-159); SGPT/ALT 18 U/L (5-49); TOTAL PROTEIN 7.2 gm/dL (6.0-8.0); TRIGLYCERIDES 46 mg/dl (<150); VITAMIN D, 25-HYDROXY 38.4 ng/mL (30-100)
== END | disposition home or self-care (01) ==
LOC: LAB 10:32
PROVIDERS: ATTEND Family Medicine
DX: Z12.5 Encounter for screening for malignant neoplasm of prostate (principal); R79.89 Other specified abnormal findings of blood chemistry; R53.83 Other fatigue; R74.8 Abnormal levels of other serum enzymes; E55.9 Vitamin D deficiency, unspecified

== ENCOUNTER 2024-09-11 07:30 | Emergency (ER) | payer OTHER ==
[~2024-09-11] VITALS: Ht 172.7 cm; Wt 80.7 kg
[2024-09-11 07:36] VITALS: BP 162/84
[2024-09-11] MEDS ORDERED: CIPROFLOXACIN HC5 ML OT (08:12)
[2024-09-12] MEDS ORDERED: VIBRAMYCIN100 MG PO (20:21)
== END 2024-09-11 08:14 | disposition home or self-care (01) ==
LOC: ED 07:30
DX: S01.312A Laceration without foreign body of left ear, initial encounter (principal); H73.892 Other specified disorders of tympanic membrane, left ear; Z91.030 Bee allergy status; Z88.5 Allergy status to narcotic agent; Z79.82 Long term (current) use of aspirin; Z79.899 Other long term (current) drug therapy; Z98.890 Other specified postprocedural states; Z87.891 Personal history of nicotine dependence; X58.XXXA Exposure to other specified factors, initial encounter; Y93.89 Activity, other specified; Y92.89 Other specified places as the place of occurrence of the external cause; Y99.8 Other external cause status

== ENCOUNTER 2024-09-12 19:51 | Emergency (ER) | payer OTHER ==
[~2024-09-12] VITALS: Ht 177.8 cm; Wt 77.6 kg
[~2024-09-12 19:51] MED LIST changes: +CIPROFLOXACIN HC5 ML OT
[2024-09-12 20:11] VITALS: BP 164/85
[2024-09-12] MEDS ORDERED: VIBRAMYCIN100 MG PO (20:21)
[2024-09-12] MEDS ORDERED: Doxycycline Hyclate 100 MG TAB PO ONE (20:25)
== END 2024-09-12 20:32 | disposition home or self-care (01) ==
LOC: ED 19:51
DX: S30.853A Superficial foreign body of scrotum and testes, initial encounter (principal); S30.863A Insect bite (nonvenomous) of scrotum and testes, initial encounter; Z88.5 Allergy status to narcotic agent; Z79.899 Other long term (current) drug therapy; Z79.82 Long term (current) use of aspirin; Z98.890 Other specified postprocedural states; Z91.030 Bee allergy status; Z87.891 Personal history of nicotine dependence; W57.XXXA Bitten or stung by nonvenomous insect and other nonvenomous arthropods, initial encounter; Y93.89 Activity, other specified; Y92.89 Other specified places as the place of occurrence of the external cause; Y99.8 Other external cause status

== ENCOUNTER → 2024-10-05 | Outpatient (CLI) | payer OTHER ==
[~2024-10-05] MED LIST changes: +IOHEXOL 350 MG/ML 100 ML VIAL IV ONE; +VIBRAMYCIN100 MG PO
== END | disposition home or self-care (01) ==
LOC: CT 00:31
PROVIDERS: ATTEND Urology
DX: I71.40 Abdominal aortic aneurysm, without rupture, unspecified (principal); R39.9 Unspecified symptoms and signs involving the genitourinary system; N40.0 Benign prostatic hyperplasia without lower urinary tract symptoms

== ENCOUNTER 2024-11-08 08:23 | Emergency (ER) | payer OTHER ==
[~2024-11-08] VITALS: Ht 177.8 cm; Wt 80.7 kg
[~2024-11-08 08:23] MED LIST changes: -IOHEXOL 350 MG/ML 100 ML VIAL IV ONE
[2024-11-08 08:32] VITALS: BP 138/96
[2024-11-08] MEDS ORDERED: Tamsulosin Hydrochloride 0.4 MG CAP PO ONE (09:20)
[2024-11-08] MEDS ORDERED: FINASTERIDE 5 MG TAB PO ONE (09:20)
[2024-11-08 09:21] LABS: BASO % 0.6 % (0.0-1.0); EOS # 0.1 10*3/uL (0.0-0.4); EOS % 1.2 % (1.0-4.0); HEMATOCRIT 46.5 % (42.0-52.0); MEAN CELL VOLUME 89.8 fl (80.0-94.0); MEAN CORPUSCULAR HGB 29.2 pg (27.0-31.0); MEAN CORPUSCULAR HGB CONC 32.5 g/dl (33.0-37.0); MEAN PLATELET VOLUME 10.2 fl (9.6-12.3); MONO # 0.5 10*3/uL (0.1-1.0); MONO % 6.8 % (3.0-9.0); NEUT # 4.8 10*3/uL (2.3-7.9); NEUT % 71.2 % (47.0-73.0); PLATELET COUNT AUTOMATED 272 10*3/uL (130-400); RED BLOOD COUNT 5.18 10*6/uL (4.50-5.90); RED CELL DISTRI WIDTH 14.4 % (0-14.5); WHITE BLOOD COUNT 6.7 10*3/uL (4.8-10.8)
[2024-11-08 09:35] LABS: BILIRUBIN Negative (Negative); BLOOD Trace-Intact (Negative); CLARITY Clear (Clear); COLOR Yellow (Yellow); GLUCOSE Negative (Negative); KETONE Negative (Negative); LEUKO ESTERASE Negative (Negative); NITRITE Negative (Negative); PH 7.5 (4.5-8.0)
[2024-11-08 09:42] LABS: ALKALINE PHOSPHATASE 144 U/L (46-116); BUN 11 mg/dl (9-23); CHLORIDE 104 mmol/L (98-107); POTASSIUM 4.5 mmol/L (3.4-5.1); SGPT/ALT 18 U/L (5-49); TOTAL PROTEIN 7.3 gm/dL (6.0-8.0)
[2024-11-08 09:43] LABS: EPITHELIAL CELLS 0-2
[2024-11-08 09:44] LABS: BACTERIA TRACE
== END 2024-11-08 10:38 | disposition home or self-care (01) ==
LOC: ED 08:23
PROVIDERS: Nurse Practitioner
DX: R33.9 Retention of urine, unspecified (principal); M79.661 Pain in right lower leg; K21.9 Gastro-esophageal reflux disease without esophagitis; F32.A Depression, unspecified; F41.9 Anxiety disorder, unspecified; F17.200 Nicotine dependence, unspecified, uncomplicated; Z79.82 Long term (current) use of aspirin; Z79.899 Other long term (current) drug therapy; Z88.5 Allergy status to narcotic agent; Z91.030 Bee allergy status; Z98.890 Other specified postprocedural states

== ENCOUNTER → 2024-11-09 | Outpatient (CLI) | payer OTHER | END | disposition home or self-care (01) | LOC: LAB 11:48 | DX: Z12.5 Encounter for screening for malignant neoplasm of prostate (principal); R53.83 Other fatigue; D40.0 Neoplasm of uncertain behavior of prostate ==

== ENCOUNTER 2024-11-13 13:17 | Emergency (ER) | payer OTHER ==
[~2024-11-13] VITALS: Ht 177.8 cm; Wt 79.4 kg
[2024-11-13 13:36] VITALS: BP 146/76
[2024-11-13] MEDS ORDERED: IBUPROFEN600 MG PO (15:45)
== END 2024-11-13 15:53 | disposition home or self-care (01) ==
LOC: ED 13:17
DX: S60.032A Contusion of left middle finger without damage to nail, initial encounter (principal); Z91.030 Bee allergy status; Z88.5 Allergy status to narcotic agent; Z79.899 Other long term (current) drug therapy; Z98.890 Other specified postprocedural states; Z87.891 Personal history of nicotine dependence; W22.09XA Striking against other stationary object, initial encounter; Y93.89 Activity, other specified; Y92.89 Other specified places as the place of occurrence of the external cause; Y99.8 Other external cause status

== ENCOUNTER 2024-12-05 10:48 | Emergency (ER) | payer OTHER ==
[~2024-12-05] VITALS: Ht 175.2 cm; Wt 77.1 kg
[2024-12-05 11:13] VITALS: BP 151/86
[2024-12-05] MEDS ORDERED: Dexamethasone Sodium Phospha 20 MG/5 ML VIAL IM ONE (12:55)
[2024-12-05] MEDS ORDERED: Acetaminophen/Oxycodone 5 MG/325 MG TABLET PO ONE (12:55)
[2024-12-05] MEDS ORDERED: Ondansetron Hydrochloride 4 MG TAB PO ONE (12:55)
== END 2024-12-05 14:30 | disposition left against medical advice (07) ==
LOC: ED 10:48
DX: S19.9XXA Unspecified injury of neck, initial encounter (principal); M25.512 Pain in left shoulder; Z91.030 Bee allergy status; Z88.5 Allergy status to narcotic agent; Z79.899 Other long term (current) drug therapy; Z98.890 Other specified postprocedural states; Z87.891 Personal history of nicotine dependence; W18.09XA Striking against other object with subsequent fall, initial encounter; Y93.89 Activity, other specified; Y92.89 Other specified places as the place of occurrence of the external cause; Y99.8 Other external cause status

== ENCOUNTER 2025-03-16 08:40 | Emergency (ER) | payer OTHER ==
[~2025-03-16] VITALS: Ht 177.8 cm; Wt 72.1 kg
[2025-03-16 08:58] VITALS: BP 147/83
[2025-03-16] MEDS ORDERED: ACETAMINOPHEN 500 MG TAB PO ONE (09:10)
== END 2025-03-16 11:50 | disposition home or self-care (01) ==
LOC: ED 08:40
DX: S40.012A Contusion of left shoulder, initial encounter (principal); F17.200 Nicotine dependence, unspecified, uncomplicated; Z91.030 Bee allergy status; Z88.5 Allergy status to narcotic agent; Z79.899 Other long term (current) drug therapy; Z79.82 Long term (current) use of aspirin; Z98.890 Other specified postprocedural states; W01.0XXA Fall on same level from slipping, tripping and stumbling without subsequent striking against object, initial encounter; Y93.89 Activity, other specified; Y92.89 Other specified places as the place of occurrence of the external cause; Y99.8 Other external cause status

== ENCOUNTER 2025-05-07 15:35 | Emergency (ER) | payer OTHER ==
[~2025-05-07] VITALS: Ht 172.7 cm; Wt 77.1 kg
[2025-05-07 16:35] VITALS: BP 146/76
[2025-05-07] MEDS ORDERED: CEPHALEXIN500 M1 PO (16:44)
[2025-05-07] MEDS ORDERED: CEPHALEXIN 500 MG CAP PO ONE (16:45)
[2025-05-07] MEDS ORDERED: Gelatin Sponge 1 EACH SPON T ONE (16:45)
== END 2025-05-07 16:53 | disposition home or self-care (01) ==
LOC: ED 15:35
DX: S81.801A Unspecified open wound, right lower leg, initial encounter (principal); K21.9 Gastro-esophageal reflux disease without esophagitis; J44.9 Chronic obstructive pulmonary disease, unspecified; Z88.5 Allergy status to narcotic agent; Z91.030 Bee allergy status; X58.XXXA Exposure to other specified factors, initial encounter; Y93.89 Activity, other specified; Y92.89 Other specified places as the place of occurrence of the external cause; Y99.8 Other external cause status